=== PATIENT | female | born 1945 | race Caucasian/White ===

== ENCOUNTER 2016-09-01 15:01 | Inpatient (IN) | payer OTHER ==
[~2016-09-01] VITALS: Ht 154.9 cm; Wt 80.0 kg
[2016-09-01] MEDS ORDERED: ONDANSETRON 4 MG INJ IV STA ×2 (17:22→19:27)
[2016-09-01] MEDS ORDERED: SOD CHLORIDE 0.9% 1,000 ML IV STA (17:22)
[2016-09-01] MEDS ORDERED: morphine 4 MG/ML VIAL IV STA ×2 (17:22→19:27)
[2016-09-01] MEDS ORDERED: ASPIRIN 81 MG TAB PO ONE (17:30)
--- NOTE | 2016-09-01 17:45 | RADRPT ---
PROCEDURE: XR Chest. CLINICAL INDICATION: Abdominal pain. TECHNIQUE: Single frontal view. COMPARISON: None. FINDINGS: The lungs are clear. The heart size is normal. There is no pleural effusion. There is no pneumothorax. IMPRESSION: 1. Normal chest radiograph. RPTAT: QQ .Gregory Giordano MD, Date Time Electronically viewed and signed by .Gregory Giordano MD, on 09/01/2016 17:45 .R/
[2016-09-01 18:17] LABS: HEMATOCRIT 43.6 % (37.0-47.0); HEMOGLOBIN 14.6 g/dl (12.0-16.0); MEAN CORPUSCULAR HEMOGLOBIN 29.2 pg (29.0-33.0); MEAN CORPUSCULAR HGB CONC 33.6 g/dl (32.0-37.0); PLATELET COUNT 259 10^3/UL (140-440); RED BLOOD COUNT 5.01 10^6/ul (4.20-5.40); RED CELL DISTRIBUTION WIDTH 14.4 % (11.5-14.5); UNCORRECTED WBC 28.2 10^3/ul (4.8-10.8); WHITE BLOOD COUNT 28.2 10^3/ul (4.8-10.8)
[2016-09-01 18:25] LABS: ALBUMIN 4.5 g/dl (3.3-4.9)
[2016-09-01 18:26] LABS: CHLORIDE 98 mmol/L (97-110); SODIUM 143 mmol/L (135-144)
[2016-09-01 18:27] LABS: POTASSIUM 4.3 mmol/L (3.5-5.1)
[2016-09-01 18:28] LABS: CONDITION 1; LH ANALYZER COMMENTS 1; SUSPECT 1
[2016-09-01 18:28] LABS: ANION GAP 21 (8-16); ASPARTATE AMINO TRANSFERASE 488 IU/L (15-46); BILIRUBIN,INDIRECT 0.7 mg/dl (0-1.1); BILIRUBIN,TOTAL 1.2 mg/dl (0.2-1.3); CARBON DIOXIDE 28 mmol/L (21-31); CREATININE 0.87 mg/dl (0.44-1.00)
[2016-09-01 18:29] LABS: ALANINE AMINOTRANSFERASE 179 IU/L (13-69); ALBUMIN/GLOBULIN RATIO 1.36; ALKALINE PHOSPHATASE 248 IU/L (42-121); BLOOD UREA NITROGEN 17 mg/dl (7-20); GLUCOSE 281 mg/dl (70-220); TOTAL PROTEIN 7.8 g/dl (6.1-8.1)
[2016-09-01 18:32] LABS: PT RATIO 1.1
[2016-09-01 18:51] LABS: LYMPHOCYTES # 1.1 10^3/ul (0.8-2.9); MONOCYTE # 2.3 10^3/ul (0.3-0.9)
[2016-09-01] MEDS ORDERED: PIPER-TAZO 3.375 GM IV (PMX) 100 ML IVPB STA (18:55)
[2016-09-01] MEDS ORDERED: SOD CHLORIDE 0.9% 1,000 ML IV ONE ×3 (19:00→21:30)
[2016-09-01] MEDS ORDERED: SOD CHLORIDE 0.9% 500 ML IV ONE (19:00)
[2016-09-01 19:01] LABS: INR 1.04; PARTIAL THROMBOPLASTIN TIME 25.2 Sec (25.0-35.0); PROTIME 13.6 Sec (12.2-14.2)
[2016-09-01 19:23] LABS: TROPONIN-I < 0.010 ng/ml (0.00-0.12)
[2016-09-01] MEDS ORDERED: metroNIDAZOLE 500 MG/NS (PMX) 100 ML IVPB ONE (19:30)
[2016-09-01 19:32] LABS: ADD UMIC YES; URINE BILIRUBIN (Dip) 2+ (NEGATIVE); URINE BLOOD (Dip) NEGATIVE (NEGATIVE); URINE COLOR AMBER (YELLOW); URINE KETONES (Dip) TRACE (NEGATIVE); URINE LEUKOCYTE ESTERASE (Dip) NEGATIVE (NEGATIVE); URINE NITRITE (Dip) NEGATIVE (NEGATIVE); URINE TOTAL PROTEIN (Dip) 1+ (NEGATIVE); URINE UROBILINOGEN (Dip) 2.0 E.U./dL (0.1-1.0)
[2016-09-01 19:54] LABS: ICTOTEST NEGATIVE (NEGATIVE)
[2016-09-01 20:00] LABS: BACTERIA,URINE MODERATE; SQUAMOUS EPITHELIAL CELL,UR MANY; URINE RBCS 0-2 /HPF (0)
--- NOTE | 2016-09-01 20:00 | RADRPT ---
PROCEDURE: CT Abdomen and Pelvis without contrast. CLINICAL INDICATION: Abdominal and pelvic pain. TECHNIQUE: CT scan of the abdomen and pelvis without contrast was performed. Coronal and sagittal reformatted images were obtained from the axial source images. Images were reviewed on a high-resolu nVoqon PACS workstation. Total exam DLP is 155.73 mGy-cm. CTDIvol is 9.85 mGy. COMPARISON: None. FINDINGS: The lung bases are normal. There is no pleural effusion. The heart size is normal and there is no p ericardial effusion. The liver is normal in size and attenuation. There is no focal hepatic lesion. Gallstones are present in the gallbladder. There is a small gas bubble in the gallbladder or gallbl adder wall anteriorly. The common bile duct is mildly dilated and there is gas in the common bile du ct. Possible stones are present distally in the common bile duct. The spleen is normal in size. There is no focal splenic lesion. Both adrenals are normal with no enlargement or mass. The pancreas is abnormally enlarged and there is diffuse surrounding mesenteric edema consistent wit h pancreatitis. There is no fluid collection or mass to suggest abscess or pseudocyst. There is no renal mass or hydronephrosis. There is no renal calculus or ureteral calculus. The abdominal aorta is not dilated. There is no retroperitoneal lymphadenopathy or mass. There is no pelvic lymphadenopathy or mass. The bladder and distal ureters are normal. The appendix is well seen and appears normal. The bowel and mesentery are normal. There is no free fluid or free gas. There are mild degenerative changes of the spine. There is no fracture or lytic lesion. IMPRESSION: 1. Gallstones in the gallbladder. 2. Small amount of gas anteriorly in the gallbladder or gallbladder wall. Small amount of gas in t he mildly dilated common bile duct. Possible stones are present distally in the common bile duct. Correlation with MRCP advised. 3. Acute pancreatitis. No abscess or pseudocyst. 4. Normal appendix. 5. Mild degenerative changes of the spine. RPTAT: QQ .Gregory Giordano MD, MD Date Time Electronically viewed and signed by .Gregory Giordano MD, on 09/01/2016 20:00 .R/
--- NOTE | 2016-09-01 20:20 | RADRPT ---
PROCEDURE: US Abdomen (right upper quadrant). CLINICAL INDICATION: Right upper quadrant abdomen pain. TECHNIQUE: Multiple real-time longitudinal and transverse images of the right upper quadrant of th e abdomen were acquired utilizing a curved array transducer. Images were reviewed on a high-resoluti on PACS workstation. COMPARISON: None FINDINGS: The liver is normal in size and echogenicity. There is no focal hepatic lesion. Gallstones are present in the gallbladder. There is gallbladder wall thickening measuring 5.3 mm an d there is a small amount of fluid around the gallbladder. The bile ducts are dilated with the common bile duct measuring 10.2 mm in diameter. The visualized portions of the pancreas are unremarkable with obscuration of the tail of the pancrea s. No free fluid is present. The right kidney measures 9.1 cm. There is normal echogenicity of the right kidney. There is no p erinephric fluid collection. No hydronephrosis, mass, or calculus is seen. IMPRESSION: 1. Gallstones in the gallbladder and gallbladder wall thickening with small amount of adjacent flui d. This is suspicious for acute cholecystitis. 2. Dilated bile ducts with the common bile duct measuring 10.2 mm. Correlation with MRCP advised. 3. Otherwise unremarkable study. RPTAT: QQ .Gregory Giordano MD, MD Date Time Electronically viewed and signed by .Gregory Giordano MD, on 09/01/2016 20:20 .R/
[2016-09-01] MEDS ORDERED: ONDANSETRON 4 MG INJ IV PRN (21:00)
[2016-09-01] MEDS ORDERED: ACETAMINOPHEN 325 MG TAB PO PRN (21:00)
[2016-09-01] MEDS ORDERED: morphine 2 MG INJ IV ONE (23:00)
--- NOTE | 2016-09-01 23:03 | ERA ---
ER Documentation Chief Complaint Date/Time DATE: 09/01/16 TIME: 22:39 Chief Complaint VOMITING X 1 DAY WITH WEAKNESS. HPI 71-year-old diabetic female with vomiting that began earlier today. Stated that she felt fine last night and even this morning but after she ate breakfast which was aches, and then took a Tylenol. She started having a sharp right upper quadrant pain and vomited. She is felt weak all over since. She has no focal weakness. Denies specific chest pain. Denies shortness of breath. Has felt chills. Denies fevers. ROS All systems reviewed and are negative except as per history of present illness. Allergies Allergies: Coded Allergies: aspirin (Verified Allergy, Unknown, 09/01/16) PMhx/Soc Medical and Surgical Hx: pt denies Medical Hx, pt denies Surgical Hx Hx Alcohol Use: No Hx Substance Use: No Hx Tobacco Use: No Smoking Status: Never smoker Physical Exam Vitals Vital Signs Date Time Temp Pulse Resp B/P Pulse Ox O2 Delivery O2 Flow Rate FiO2 09/01/16 22:03 64 18 115/54 98 Nasal Cannula 2.0 09/01/16 21:04 Nasal Cannula 2 09/01/16 20:49 98.4 74 18 101/47 94 Room Air 09/01/16 18:34 62 25 113/57 95 Room Air 09/01/16 15:14 97.8 88 19 108/54 99 Physical Exam Const: [] Mild distress, ill-appearing Head: Atraumatic Eyes: Normal Conjunctiva ENT: Normal External Ears, Nose and Mouth. Neck: Full range of motion..~ No meningismus. Resp: Clear to auscultation bilaterally Cardio: Regular mild tachycardia, no murmurs Abd: Soft, mild to moderate right upper quadrant tenderness without guarding or rebound, non distended. Normal bowel sounds Skin: No petechiae or rashes Back: No midline or flank tenderness Ext: No cyanosis, or edema Neur: Awake and alert and oriented 3, no focal deficits Psych: Normal Mood and Affect Result Diagram: 09/01/16 1715 09/01/16 1722 Results 24 hrs Laboratory Tests Test 09/01/16 17:15 09/01/16 17:22 09/01/16 18:18 09/01/16 19:00 Activated Partial Thromboplast Time 25.2Sec Band Neutrophils % 22.0% Hematocrit 43.6% Hemoglobin 14.6g/dl INR International Normalized Ratio 1.04 Lymphocytes # 1.110^3/ul Lymphocytes % 4.0% Mean Corpuscular Hemoglobin 29.2pg Mean Corpuscular Hemoglobin Concent 33.6g/dl Mean Corpuscular Volume 87.0fl Mean Platelet Volume 10.0fl Metamyelocytes # 0.6 Metamyelocytes % 2.0% Monocytes # 2.310^3/ul Monocytes % 8.0% Neutrophils # 18.010^3/ul Neutrophils % 64.0% Platelet Count 29612^3/UL Prothrombin Time 13.6Sec Prothrombin Time Ratio 1.1 Red Blood Count 5.0110^6/ul Red Cell Distribution Width 14.4% White Blood Count 28.210^3/ul Alanine Aminotransferase (ALT/SGPT) 179IU/L Albumin 4.5g/dl Albumin/Globulin Ratio 1.36 Alkaline Phosphatase 248IU/L Anion Gap 21 Aspartate Amino Transf (AST/SGOT) 488IU/L Blood Urea Nitrogen 17mg/dl Calcium Level 10.0mg/dl Carbon Dioxide Level 28mmol/L Chloride Level 98mmol/L Creatinine 0.87mg/dl Direct Bilirubin 0.50mg/dl Globulin 3.30g/dl Glucose Level 281mg/dl Indirect Bilirubin 0.7mg/dl Lipase 91761Z/L Potassium Level 4.3mmol/L Sodium Level 143mmol/L Total Bilirubin 1.2mg/dl Total Protein 7.8g/dl Troponin I < 0.010ng/ml Lactic Acid Level 5.7mmol/L Urine Bacteria MODERATE Urine Bilirubin 2+ Urine Clarity SLIGHTLY CLOUDY Urine Color SHASHI Urine Glucose 0.1%% Urine Hemoglobin NEGATIVE Urine Ictotest NEGATIVE Urine Ketones TRACE Urine Leukocyte Esterase NEGATIVE Urine Microscopic RBC 0-2/HPF Urine Microscopic WBC 5-10/HPF Urine Nitrite NEGATIVE Urine Specific [place] 1.025 Urine Squamous Epithelial Cells MANY Urine Total Protein 1+ Urine Urobilinogen 2.0 E.U./dL Urine pH 5.5 Test 09/01/16 21:15 Lactic Acid Level 4.6mmol/L Current Medications Medications (Trade) Dose Ordered Sig/Debbie Route PRN Reason Start Time Stop Time Status Last Admin Dose Admin Sodium Chloride (NS) 1,000 ml @ 1,000 mls/hr Q1H STAT IV 09/01/16 17:22 12/25/16 18:21 DC 09/01/16 17:42 Morphine Sulfate (morphine) 4 mg ONCE STAT IV 09/01/16 17:22 09/01/16 17:25 DC 09/01/16 17:42 Ondansetron HCl (Zofran Inj) 4 mg ONCE STAT IV 09/01/16 17:22 09/01/16 17:25 DC 09/01/16 17:43 Aspirin 324 mg 324 mg ONCE ONCE PO 09/01/16 17:30 09/01/16 17:31 DC 09/01/16 17:43 Piperacillin Sod/ Tazobactam Sod 100 ml @ 200 mls/hr ONCE STAT IVPB 09/01/16 18:55 09/01/16 19:24 DC 09/01/16 19:22 Sodium Chloride 1,000 ml @ 1,000 mls/hr Q1H ONCE IV 09/01/16 19:00 09/01/16 19:59 DC 09/01/16 19:18 Sodium Chloride 500 ml @ 500 mls/hr Q1H ONCE IV 09/01/16 19:00 09/01/16 19:59 DC 09/01/16 19:19 Metronidazole (Flagyl 500 Mg (Pmx)) 100 ml @ 100 mls/hr ONCE ONCE IVPB 09/01/16 19:30 09/01/16 20:59 DC Morphine Sulfate (morphine) 4 mg ONCE STAT IV 09/01/16 19:27 09/01/16 20:21 DC 09/01/16 20:24 Ondansetron HCl (Zofran Inj) 4 mg ONCE STAT IV 09/01/16 19:27 09/01/16 20:21 DC 09/01/16 20:24 Ondansetron HCl (Zofran Inj) 4 mg BRIDGE ORDER PRN IV NAUSEA AND/OR VOMITING 09/01/16 21:00 09/02/16 20:59 Acetaminophen 650 mg 650 mg ER BRIDGE PRN PO MILD PAIN/FEVER 09/01/16 21:00 09/02/16 20:59 Sodium Chloride 1,000 ml @ 1,000 mls/hr Q1H ONCE IV 09/01/16 21:00 09/01/16 21:59 DC 09/01/16 21:09 Sodium Chloride (NS) 1,000 ml @ 1,000 mls/hr Q1H ONCE IV 09/01/16 21:30 09/01/16 22:29 DC Procedures/MDM Acute cholecystitis with pancreatitis. No common bile duct stone visualized but is possible. Patient also has sepsis secondary to these problems. Diagnosis of sepsis was made at 1852 after laboratories returned and reviewed. Patient had a significantly elevated lactic acid. She is given more than 30 mL/kg normal saline. She is given Zosyn. Surprisingly she did not have significant abdominal pain or tenderness. Given for mild grams of morphine for pain which took away all of her pain. His also given Zofran which to resolved her nausea. I ordered an MRCP. and was paged for GI never returned the call. Dr. Mendoza was on-call for surgery was also paged. He came and saw the patient emergency room. Lactic acid is reducing with IV fluids. Hyperglycemia is also being treated with IV fluid. EKG is suspicious for ischemia as the patient does have inverted T waves in the anterior and lateral leads of her troponin is negative and the blood greater than 8 hours after pain began. Patient is being admitted likely receive an MRCP prior to admission. EKG interpretation: Normal sinus rhythm rate of 64, left axis deviation, T-wave inversions in anterolateral leads suspicious for ischemia. groundwater monitoring technician interpretation: Normal sinus rhythm alternating with mild sinus tachycardia, no other arrhythmias Chest x-ray interpretation: No acute process, I see no widened No pneumothorax no hemothorax no pulmonary edema no fractures CT abdomen and pelvis interpretation: Gallstones with small amount of gas and bladder wall, dilated common bile duct stones present distally. Ultrasound gallbladder interpretation: Gallstones with wall thickening, pericystic colic fluid, dilated come bile duct of 10.2 cm. Critical Care: Time: 44 minutes Treatments/Evaluations: Emergent fluid management, while maintaining close respiratory support. Barely broad spectrum antibiotic therapy. Simultaneous assessment for possible sources in order to direct therapy. Consideration for invasive and chemical support to prevent respiratory or cardiac collapse, discussion with family, surgeon, admitting doctor, multiple visits the patient's bedside assess status, chart review. Perfusion Reassessment for Septic Shock: Temp 98.9, Pulse 97, RR 18, BP 111/68 Heart Exam: Normal sinus rhythm without murmur Lung Exam: No Crackles Capillary Refill: Less than 1 second Peripheral Pulses: Radially present Skin: No paleness or mottling Departure Diagnosis: Primary Impression: Acute cholecystitis Additional Impressions: Choledocholithiasis Acute pancreatitis Sepsis Lactic acidosis Hyperglycemia due to type 2 diabetes mellitus Condition: Serious GLORIA HILL DO Sep 01, 2016 22:50
[2016-09-02] VITALS (8 sets, daily range): BP systolic 114–118; BP diastolic 57–59; PULSE 63–70; RESP 16–18; TEMP 98.5; Ht 154.9 cm; Wt 80.0 kg
--- NOTE | 2016-09-02 00:51 | RADRPT ---
PROCEDURE: MRCP. CLINICAL INDICATION: Abdominal pain. TECHNIQUE: An MRCP was performed without intravenous contrast. Multiplanar multisequence imaging w as performed, including heavily T2-weighted imaging of the biliary tree. 3-D coronal rotating MIP im ages of the biliary tree were also generated. The examination was performed on a 3.0 [facility]. COMPARISON: Abdominal ultrasound and CT of the abdomen and pelvis dated 09/01/2016. FINDINGS: The examination is limited by patient motion. There are stones in the gallbladder and gallbladder wa ll thickening. The gallbladder gas seen in the prior CT is not evident in this examination. There i s also no significant pericholecystic inflammation. The common bile duct is dilated up to 11 mm in d iameter. There is the suggestion of a 6 mm stone within the distal common bile duct. There is a sm all to moderate amount of free fluid in the abdomen, seen predominately in the anterior pararenal sp wendy. This is suggestive of pancreatitis. No pancreatic ductal dilatation is identified. The liver , spleen, adrenal glands, and kidneys are unremarkable. IMPRESSION: 1. Motion limited examination. 2. Cholelithiasis and gallbladder wall thickening. These findings raise the possibility of cholecys titis, although there is no significant pericholecystic inflammation. The gallbladder gas seen in t he prior CT is not evident in this examination. 3. Dilated common bile duct (11 mm) and a probable 6 mm stone in the distal common bile duct. This could be further evaluated with ERCP if clinically warranted. 4. Small to moderate amount of free fluid in the abdomen, seen predominately in the anterior parare nal space. This is suggestive of pancreatitis. Correlation with serum amylase and lipase levels is r ecommended. There is no pancreatic ductal dilatation. RPTAT: HTAR .Loki Turner MD, Date Time Electronically viewed and signed by .Loki Turner MD, on 09/02/2016 00:50 .R/
--- NOTE | 2016-09-02 02:32 | CONS ---
DATE OF ADMISSION: 09/01/2016 DATE OF CONSULTATION: 09/01/2016 HISTORY OF PRESENT ILLNESS: Ms. Yin is a 71-year-old female who had acute onset of right upper quadrant abdominal pain and came to the emergency room. She states she had similar symptoms [address] [facility] and was told she has pancreatitis. Due to her workup, I was called for concern f or cholecystitis. PAST MEDICAL HISTORY: Significant for acy-mkwsjqu-vkjzaihva diabetes and hypertension. MEDICATIONS: She takes metformin and Lotensin. PAST SURGICAL HISTORY: Noncontributory. ALLERGIES: NO KNOWN DRUG ALLERGIES. SOCIAL HISTORY: Denies drinking, drug use or smoking. PHYSICAL EXAMINATION: GENERAL: She is an obese female resting comfortably. VITAL SIGNS: T-max is 98.4, BP 115/54, pulse is 64. CHEST: Clear to auscultation bilaterally. HEART: Regular rhythm. ABDOMEN: Soft, nondistended but significant right upper quadrant tenderness. LABORATORY DATA: Reveal a white count of 28, hematocrit of 44, and platelets of 259. Sodium 143, p otassium 4.3, chloride 98, CO2 28, BUN and creatinine 17 and 0.9 and glucose of 281. AST 48, ALT 17 9, alkaline phosphatase 248 and a lipase of 41,000. Her total bilirubin is 1.2. Ultrasound of her gallbladder reveals gallstones in the gallbladder and gallbladder wall thickening with a small amoun t of adjacent fluid, dilated bile ducts with common duct measuring 10.[address] of the abdomen and pelvis reveals gallstones in the gallbladder, a small amount of gas anterior in the gallbladder, ga llbladder wall, small amount of gas and a mildly dilated common duct, possible stones present distally in the common duct. Correlation with MRCP. Acute pancreatitis. ASSESSMENT AND PLAN: Ms. Yin is a 71-year-old female with gallstone pancreatitis, possible emph ysematous cholecystitis, and possible choledocholithiasis. An MRCP will be ordered stat to further elucidate her condition. If she does have common bile duct stones, then she will require an ERCP pr ior to surgery. If her duct is clear and she still some air in her gallbladder wall, she will need an urgent cholecystectomy. I discussed laparoscopic, possible open cholecystectomy, possible cholan giogram with the patient and her friends. All benefits, risks, alternatives were discussed in [facility], questions answered. The patient elects to proceed. We will await the results of the MRCP and th en determine the next course of action. In the meantime, n.p.o., IV fluids, and IV antibiotics. Dictated By: HOWIE ESCOBEDO/NTS Conf#: [id number] DID#: [id number]
[2016-09-02] MEDS ORDERED: morphine 2 MG INJ IV PRN (06:30)
[2016-09-02] MEDS ORDERED: ONDANSETRON 4 MG INJ IV PRN (06:30)
[2016-09-02] MEDS: IMIPENEM-CILAST 500MG IV (PMX) 100 ML IVPB SCH ×3 (06:30→19:26)
[2016-09-02] MEDS ORDERED: MAGNESIUM HYDROXIDE 30ML CUP PO PRN (06:30)
[2016-09-02] MEDS ORDERED: LORAZEPAM 2 MG INJ IV PRN (06:30)
[2016-09-02] MEDS ORDERED: METOCLOPRAMIDE 10 MG INJ IV PRN (06:30)
[2016-09-02] MEDS ORDERED: NACL 0.9% 3 ML SYG IV SCH (06:30)
[2016-09-02] MEDS: DEXTROSE 5%-0.45% NACL 1,000 ML IV SCH ×2 (08:33→14:28)
--- NOTE | 2016-09-02 08:41 | CONS ---
Date/Time of Note Date/Time of Note DATE: 09/02/16 TIME: 08:41 Assessment/Plan Assessment/Plan Additional Assessment/Plan Cholecystitis with cholelithiasis and choledocholithiasis * Monitor lipase, amylase, and bilirubin * N.p.o. * IVF hydration w/ pain management * ERCP with Dr. Whitley with improvement of her clinical presentation * Cholecystectomy with Further recommendations depend on clinical course Patient seen in collaboration with Dr. Whitley Consultation Date/Type/Reason Admit Date/Time Sep 01, 2016 at 20:52 Hx of Present Illness 71-year-old Afghan-speaking female with past medical history of diabetes, hypertension and low back pain presented to the ED last night with complaints of intense right-sided abdominal pain, chills, nausea and nonbloody bilious vomiting. She states that abdominal pain and vomiting began earlier yesterday and began to worsen throughout the day. She denies fever, diarrhea, chest pain , shortness of breath, previous episode, sick contacts, alcohol use, travel outside the [place], and lightheadedness. MRCP indicates: The common bile duct is dilated up to 11 mm in diameter. There is the suggestion of a 6 mm stone within the distal common bile duct. Patient will require ERCP prior to cholecystectomy. Patient and family advised of R/B/A of procedure and they are agreeable to proceed. Past Surgical History Past Surgical Hx: no surgical history Family History Significant Family History: no pertinent family hx Social History Alcohol Use: none Smoking Status: Never smoker Exam/Review of Systems Vital Signs Vitals Vital Signs Date Time Temp Pulse Resp B/P Pulse Ox O2 Delivery O2 Flow Rate FiO2 09/02/16 08:09 66 09/02/16 05:00 111/60 100 Nasal Cannula 2.0 09/02/16 04:00 98.5 14 Exam Constitutional: alert, oriented, well developed Psych: nl mood/affect Head: normocephalic Eyes: EOMI ENMT: nl external ears & nose, nl lips & teeth, nl nasal mucosa & septum Respiratory: normal air movement Cardiovascular: regular rate and rhythm Gastrointestinal: soft, tender (Right side) Neurological: X RAY TECHNOLOGIST II-XII intact Results Result Diagram: 09/01/16 1715 09/01/16 1722 Results 24 hrs Laboratory Tests Test 09/01/16 17:15 09/01/16 17:22 09/01/16 18:18 09/01/16 19:00 Activated Partial Thromboplast Time 25.2 Band Neutrophils % 22.0 H Hematocrit 43.6 Hemoglobin 14.6 INR International Normalized Ratio 1.04 Lymphocytes # 1.1 Lymphocytes % 4.0 L Mean Corpuscular Hemoglobin 29.2 Mean Corpuscular Hemoglobin Concent 33.6 Mean Corpuscular Volume 87.0 Mean Platelet Volume 10.0 Metamyelocytes # 0.6 Metamyelocytes % 2.0 H Monocytes # 2.3 H Monocytes % 8.0 Neutrophils # 18.0 H Neutrophils % 64.0 Platelet Count 259 Prothrombin Time 13.6 Prothrombin Time Ratio 1.1 Red Blood Count 5.01 Red Cell Distribution Width 14.4 White Blood Count 28.2 H Alanine Aminotransferase (ALT/SGPT) 179 H Albumin 4.5 Albumin/Globulin Ratio 1.36 Alkaline Phosphatase 248 H Anion Gap 21 H Aspartate Amino Transf (AST/SGOT) 488 H Blood Urea Nitrogen 17 Calcium Level 10.0 Carbon Dioxide Level 28 Chloride Level 98 Creatinine 0.87 Direct Bilirubin 0.50 H Globulin 3.30 H Glucose Level 281 H Indirect Bilirubin 0.7 Lipase 04755 H Potassium Level 4.3 Sodium Level 143 Total Bilirubin 1.2 Total Protein 7.8 Troponin I < 0.010 Lactic Acid Level 5.7 *H Urine Bacteria MODERATE Urine Bilirubin 2+ H Urine Clarity SLIGHTLY CLOUDY Urine Color SHASHI Urine Glucose 0.1% H Urine Hemoglobin NEGATIVE Urine Ictotest NEGATIVE Urine Ketones TRACE H Urine Leukocyte Esterase NEGATIVE Urine Microscopic RBC 0-2 Urine Microscopic WBC 5-10 Urine Nitrite NEGATIVE Urine Specific [place] 1.025 Urine Squamous Epithelial Cells MANY Urine Total Protein 1+ H Urine Urobilinogen 2.0 E.U./dL H Urine pH 5.5 Test 09/01/16 21:15 09/01/16 23:10 Lactic Acid Level 4.6 *H 3.5 H Medications Medications Current Medications Dextrose/Sodium Chloride (D5-1/2ns) 1,000 ml @ 125 mls/hr Q8H IV ; Start 09/02 at 06:28 Lorazepam (Ativan) 0.5 mg Q6H PRN IV ANXIETY; Start 09/02/16 at 06:30 Ondansetron HCl (Zofran Inj) 4 mg Q6H PRN IV NAUSEA AND/OR VOMITING; Start at 06:30 Metoclopramide HCl (Reglan) 10 mg Q6H PRN IV NAUSEA AND/OR VOMITING; Start at 06:30 Magnesium Hydroxide 30 ml 30 ml DAILY PRN PO CONSTIPATION; Start 09/02/16 at 06:30 Imipenem/ Cilastatin Sodium (Primaxin 500 Mg/ 100 ml (Pmx)) 100 ml @ 100 mls/ hr Q6H IVPB ; Start 09/02/16 at 06:30 Morphine Sulfate (morphine) 4 mg Q4H PRN IV pain; Start 09/02/16 at 07:00 Famotidine (Pepcid Iv) 20 mg DAILY IV ; Start 09/02/16 at 09:00 CLYDE WAGNER Sep 02, 2016 08:41
[2016-09-02] MEDS ORDERED: FAMOTIDINE 20 MG INJ IV SCH (09:00)
--- NOTE | 2016-09-02 09:06 | HP ---
DATE OF ADMISSION: 09/01/2016 TIME SEEN: 2330. CHIEF COMPLAINT: Abdominal pain and vomiting. HISTORY OF PRESENT ILLNESS: The patient is a 71-year-old female with a history of pancreatitis 10 y ears ago, diagnosed at her home country in [facility] who presented to the emergency department with abdominal pain and vomiting. The pain is mainly localized in the right upper quadrant area and asso ciated with nonbilious, nonbloody vomiting. When she presented to the ER, her vitals were stable. Laboratory values, however, shows a WBC of 28,000. AST 488, ALT 179, alkaline phosphatase 248, lipa se 41,000, lactic acid 5.7, and glucose of 281. She had a right upper quadrant ultrasound which ja wed findings suspicious for acute cholecystitis as well as dilated common bile duct measuring 10.[address] abdomen and pelvis was done and then MRCP was done which showed cholelithiasis and gallbladde r wall thickening as well as a dilated common bile duct measuring 11 mm and probable 6 mm stone in t he distal common bile duct. Chest x-ray shows clear lungs. The patient has already been seen by Dr Joshua Mendoza, the surgeon, with plan for laparoscopic cholecystectomy. The patient received pain medica tion, IV fluids, and antibody was given in the ER. REVIEW OF SYSTEMS: Negative except as mentioned in the HPI. PAST MEDICAL HISTORY: As per HPI. SOCIAL HISTORY: Denies tobacco, alcohol, or illicit drug use. ALLERGIES: ASPIRIN. HOME MEDICATIONS: None listed. PHYSICAL EXAMINATION: VITAL SIGNS: Blood pressure 120/57, heart rate 68, respiratory rate 14, temperature 98.4, oxygen sa turation 98% on 2 liters. GENERAL: In distress due to pain and appears sick. HEENT: No obvious head deformity. Pupils react to light. Extraocular muscles intact. CARDIOVASCULAR: Regular rate and rhythm. No extra sounds. LUNGS: Clear. ABDOMEN: Soft. There is tenderness mainly in the right upper quadrant area. No guarding. No rigi dity. There is positive bowel sounds. EXTREMITIES: No edema. LABORATORY: Pertinent positives as above stated in HPI. IMAGING: Gallbladder ultrasound, CT abdomen and pelvis, MRCP, and chest x-ray have been done and re sults have been discussed in the HPI. IMPRESSION: 1. Acute cholecystitis with choledocholithiasis. 2. Gallstone pancreatitis. 3. Sepsis secondary to above. 4. Lactic acidosis. 5. Abnormal liver enzymes, secondary to #1. 6. Hyperglycemia, likely with a history of diabetes. PLAN: Will keep n.p.o. She will receive IV fluids. We will provide pain medication and antiemetic s as needed. We will start her on imipenem. Will repeat labs in the morning and will add A1c. We will trend her lactic acid. I believe a GI consult has been placed by the ER physician, but if not, will place one since she will need ERCP. Again, she will be kept n.p.o. for possible laparoscopic cholecystectomy by Dr. Mendoza. Further workup and management per clinical course. Dictated By: RODRI GOSS/DEMARCUS Conf#: [id number] DID#: [id number]
[2016-09-02] MEDS: FAMOTIDINE 20 MG INJ IV SCH (09:26)
[2016-09-02 09:37] LABS: HEMATOCRIT 38.1 % (37.0-47.0); HEMOGLOBIN 12.8 g/dl (12.0-16.0); MEAN CORPUSCULAR HGB CONC 33.6 g/dl (32.0-37.0); MEAN CORPUSCULAR VOLUME 86.4 fl (82.0-101.0); MEAN PLATELET VOLUME 9.4 fl (7.4-10.4); PLATELET COUNT 212 10^3/UL (140-440); RED BLOOD COUNT 4.41 10^6/ul (4.20-5.40); RED CELL DISTRIBUTION WIDTH 14.5 % (11.5-14.5); UNCORRECTED WBC 25.1 10^3/ul (4.8-10.8); WHITE BLOOD COUNT 25.1 10^3/ul (4.8-10.8)
[2016-09-02 09:41] LABS: CONDITION 1; LH ANALYZER COMMENTS 1; SUSPECT 1
[2016-09-02] MEDS: morphine 4 MG/ML VIAL IV PRN ×2 (09:41→14:16)
[2016-09-02 09:43] LABS: ALBUMIN 3.5 g/dl (3.3-4.9); POTASSIUM 3.9 mmol/L (3.5-5.1)
[2016-09-02 09:45] LABS: CREATININE 0.65 mg/dl (0.44-1.00)
[2016-09-02 09:46] LABS: ALBUMIN/GLOBULIN RATIO 1.16; BILIRUBIN,INDIRECT 0.7 mg/dl (0-1.1); BILIRUBIN,TOTAL 0.7 mg/dl (0.2-1.3); CALCIUM 8.6 mg/dl (8.4-10.2); TOTAL PROTEIN 6.5 g/dl (6.1-8.1)
[2016-09-02 09:47] LABS: MAGNESIUM 1.5 mg/dl (1.7-2.5)
--- NOTE | 2016-09-02 10:43 | PN ---
DATE: 09/02/2016 SUBJECTIVE: Ms. Yin is hospital day 1 for gallstone pancreatitis. She states she is feeling be tter and complaining of less pain. OBJECTIVE: VITAL SIGNS: She is afebrile. Vital signs stable. ABDOMEN: Soft with less epigastric and right upper quadrant tenderness. LABORATORY DATA: Today reveal white count of 25, down from 28, hematocrit 38 and platelets of 212. Her chemistry is pending today. She did have an MRCP done in the middle of the night which reveale d cholelithiasis and gallbladder wall thickening, possible cholecystitis, although there is no signi ficant pericholecystic inflammation. The gallbladder gas seen on the prior CT is not evident on exa m. There is a dilated common duct with probable 6 mm stone in the distal common bile duct, small to moderate free fluid in the abdomen in the anterior perirenal space suggestive of pancreatitis. ASSESSMENT AND PLAN: 1. Ms. Yin is a 71-year-old female with choledocholithiasis and gallstone pancreatitis. She is improving and I would await for her pancreatitis to resolve laparoscopic cholecystectomy. 2. Recommend ERCP when pancreatitis is stable. 3. Likely will benefit from an outpatient laparoscopic cholecystectomy. Dictated By: HOWIE ESCOBEDO/DEMARCUS Conf#: [id number] DID#: [id number]
[2016-09-02 10:54] LABS: MONOCYTE # 0.8 10^3/ul (0.3-0.9); NEUTROPHIL # 22.1 10^3/ul (1.6-7.5)
[2016-09-02] MEDS ORDERED: VANCOMYCIN IV PER PHARMACY XX SCH (16:30)
--- NOTE | 2016-09-02 16:45 | PN ---
Date/Time of Note Date/Time of Note DATE: 09/02/16 TIME: 16:43 Assessment/Plan VTE Prophylaxis VTE Prophylaxis Intervention: SCD's Assessment/Plan Chief Complaint/Hosp Course IMPRESSION: 1. Acute cholecystitis with choledocholithiasis. General surgery and pig iron loader has been consulted, n.p.o., IV fluids, Continue broad-spectrum IV antibiotics 2. Gallstone pancreatitis. General surgery and GI has been consulted Continue IV fluid, broad-spectrum IV antibiotics, follow up GI recommendation for possible ERCP 3. Sepsis secondary to above. As above 4. Lactic acidosis. As above 5. Abnormal liver enzymes, secondary to #1. 6. Diabetes mellitus type 2, start patient on insulin sliding scale, low dose of Lantus, continue monitor We will continue monitor patient closely for recommendation management treatment as clinical course Problems: Subjective 24 Hr Interval Summary Free Text/Dictation Patient continues to complain of having abdominal discomfort No nausea vomiting Denies of any chest pain Exam/Review of Systems Vital Signs Vitals Vital Signs Date Time Temp Pulse Resp B/P Pulse Ox O2 Delivery O2 Flow Rate FiO2 09/02/16 16:07 70 09/02/16 15:40 98.0 18 114/57 92 09/02/16 05:00 Nasal Cannula 2.0 Exam General: The patient is well-developed, Not in acute distress. HEENT: Atraumatic, normocephalic. The pupils are equal and round . Neck: Supple with full range of motion. Chest: Normal expansion of the thorax during inspiration Lungs: Clear to auscultation bilaterally Heart: Normal S1-S2, Regular rhythm and rate. Abdomen: Soft , midepigastric and right upper quadrant tenderness , nondistended , bowel sounds are present. Extremities: Normal to inspection, no edema no cyanosis Neurologic: Normal mental status,The patient is awake, alert and oriented . Results Result Diagram: 09/02/16 0914 09/02/16 0914 Results 24 hrs Laboratory Tests Test 09/01/16 17:15 09/01/16 17:22 09/01/16 18:18 09/01/16 19:00 Activated Partial Thromboplast Time 25.2 Band Neutrophils % 22.0 H Hematocrit 43.6 Hemoglobin 14.6 INR International Normalized Ratio 1.04 Lymphocytes # 1.1 Lymphocytes % 4.0 L Mean Corpuscular Hemoglobin 29.2 Mean Corpuscular Hemoglobin Concent 33.6 Mean Corpuscular Volume 87.0 Mean Platelet Volume 10.0 Metamyelocytes # 0.6 Metamyelocytes % 2.0 H Monocytes # 2.3 H Monocytes % 8.0 Neutrophils # 18.0 H Neutrophils % 64.0 Platelet Count 259 Prothrombin Time 13.6 Prothrombin Time Ratio 1.1 Red Blood Count 5.01 Red Cell Distribution Width 14.4 White Blood Count 28.2 H Alanine Aminotransferase (ALT/SGPT) 179 H Albumin 4.5 Albumin/Globulin Ratio 1.36 Alkaline Phosphatase 248 H Anion Gap 21 H Aspartate Amino Transf (AST/SGOT) 488 H Blood Urea Nitrogen 17 Calcium Level 10.0 Carbon Dioxide Level 28 Chloride Level 98 Creatinine 0.87 Direct Bilirubin 0.50 H Globulin 3.30 H Glucose Level 281 H Indirect Bilirubin 0.7 Lipase 25123 H Potassium Level 4.3 Sodium Level 143 Total Bilirubin 1.2 Total Protein 7.8 Troponin I < 0.010 Lactic Acid Level 5.7 *H Urine Bacteria MODERATE Urine Bilirubin 2+ H Urine Clarity SLIGHTLY CLOUDY Urine Color SHASHI Urine Glucose 0.1% H Urine Hemoglobin NEGATIVE Urine Ictotest NEGATIVE Urine Ketones TRACE H Urine Leukocyte Esterase NEGATIVE Urine Microscopic RBC 0-2 Urine Microscopic WBC 5-10 Urine Nitrite NEGATIVE Urine Specific [place] 1.025 Urine Squamous Epithelial Cells MANY Urine Total Protein 1+ H Urine Urobilinogen 2.0 E.U./dL H Urine pH 5.5 Test 09/01/16 21:15 09/01/16 23:10 09/02/16 09:14 Lactic Acid Level 4.6 *H 3.5 H 2.0 Alanine Aminotransferase (ALT/SGPT) 139 H Albumin 3.5 # Albumin/Globulin Ratio 1.16 Alkaline Phosphatase 160 H Anion Gap 18 H Aspartate Amino Transf (AST/SGOT) 213 H Band Neutrophils % 1.0 Basophils # Basophils % Blood Morphology Comment Blood Urea Nitrogen 14 Calcium Level 8.6 Carbon Dioxide Level 26 Chloride Level 102 Creatinine 0.65 Differential Comment MANUAL DIFF Direct Bilirubin 0.00 # Eosinophils # Eosinophils % Globulin 3.00 Glucose Level 248 H Hematocrit 38.1 Hemoglobin 12.8 Indirect Bilirubin 0.7 Lymphocytes # 2.0 Lymphocytes % 8.0 L Magnesium Level 1.5 L Mean Corpuscular Hemoglobin 29.0 Mean Corpuscular Hemoglobin Concent 33.6 Mean Corpuscular Volume 86.4 Mean Platelet Volume 9.4 Monocytes # 0.8 Monocytes % 3.0 Neutrophils # 22.1 H Neutrophils % 88.0 H Nucleated Red Blood Cells # Nucleated Red Blood Cells % Platelet Count 212 Potassium Level 3.9 Red Blood Count 4.41 Red Cell Distribution Width 14.5 Sodium Level 142 Total Bilirubin 0.7 Total Protein 6.5 # White Blood Count 25.1 H Medications Medications Current Medications Dextrose/Sodium Chloride (D5-1/2ns) 1,000 ml @ 125 mls/hr Q8H IV Last administered on 09/02/16at 08:33; Admin Dose 125 MLS/HR; Start 09/02/16 at 06: 28 Lorazepam (Ativan) 0.5 mg Q6H PRN IV ANXIETY; Start 09/02/16 at 06:30 Ondansetron HCl (Zofran Inj) 4 mg Q6H PRN IV NAUSEA AND/OR VOMITING; Start at 06:30 Metoclopramide HCl (Reglan) 10 mg Q6H PRN IV NAUSEA AND/OR VOMITING; Start at 06:30 Magnesium Hydroxide 30 ml 30 ml DAILY PRN PO CONSTIPATION; Start 09/02/16 at 06:30 Imipenem/ Cilastatin Sodium (Primaxin 500 Mg/ 100 ml (Pmx)) 100 ml @ 100 mls/ hr Q6H IVPB Last administered on 09/02/16at 13:46; Admin Dose 100 MLS/HR; Start 09/02/16 at 06:30 Morphine Sulfate (morphine) 4 mg Q4H PRN IV pain Last administered on at 14:16; Admin Dose 4 MG; Start 09/02/16 at 07:00 Famotidine (Pepcid Iv) 20 mg DAILY IV Last administered on 09/02/16at 09:26; Admin Dose 20 MG; Start 09/02/16 at 09:00 Insulin Glargine (Lantus) 5 unit QPM SC ; Start 09/02/16 at 21:00 Diagnostic Test (Pha) (Accucheck) 1 ea 02 XX ; Start 09/03/16 at 02:00 Miscellaneous Information 1 ea NOTE XX ; Start 09/02/16 at 17:00 Glucose (Glutose) 15 gm Q15M PRN PO DECREASED GLUCOSE; Start 09/02/16 at 17:00 Glucose (Glutose) 22.5 gm Q15M PRN PO DECREASED GLUCOSE; Start 09/02/16 at 17: 00 Dextrose (D50w Syringe) 25 ml Q15M PRN IV DECREASED GLUCOSE; Start 09/02/16 at 17:00 Dextrose (D50w Syringe) 50 ml Q15M PRN IV DECREASED GLUCOSE; Start 09/02/16 at 17:00 Glucagon (Glucagen) 1 mg Q15M PRN IM DECREASED GLUCOSE; Start 09/02/16 at 17: 00 Glucose (Glutose) 15 gm Q15M PRN BUCCAL DECREASED GLUCOSE; Start 09/02/16 at 17:00 LEONARDO YATES MD Sep 02, 2016 16:45
[2016-09-02] MEDS ORDERED: GLUCOSE GEL 15 GRAM TUBE PO PRN ×2 (17:00)
[2016-09-02] MEDS ORDERED: GLUCAGON 1 MG INJ IM PRN (17:00)
[2016-09-02] MEDS ORDERED: VANCOMYCIN 1.5 GM in SOD CHLORIDE 0.9% 250 ML IVPB ONE (17:00)
[2016-09-02] MEDS ORDERED: DEXTROSE 50% 50 ML SYRINGE IV PRN ×2 (17:00)
[2016-09-02] MEDS ORDERED: GLUCOSE GEL 15 GRAM TUBE BUCCAL PRN (17:00)
[2016-09-02] MEDS: INSULIN ASPART [NOVOLOG] 3 ML PEN SC SCH ×2 (19:40→21:00)
[2016-09-02] MEDS: INSULIN GLARGINE [LANtus] 3 ML PEN SC SCH (21:00)
[2016-09-03] VITALS (22 sets, daily range): BP systolic 109–160; BP diastolic 55–74; PULSE 50–75; RESP 16–22
[2016-09-03] MEDS: DEXTROSE 5%-0.45% NACL 1,000 ML IV SCH ×3 (01:25→14:44)
[2016-09-03] MEDS: IMIPENEM-CILAST 500MG IV (PMX) 100 ML IVPB SCH ×4 (01:27→21:21)
[2016-09-03] MEDS: ACCUCHECK XX SCH (02:00)
[2016-09-03] MEDS: INSULIN ASPART [NOVOLOG] 3 ML PEN SC SCH ×4 (07:38→20:35)
[2016-09-03 08:04] LABS: EOSINOPHILS # 0.1 10^3/ul (0.0-0.5); EOSINOPHILS % 0.3 % (0.0-7.0); HEMATOCRIT 36.3 % (37.0-47.0); HEMOGLOBIN 12.3 g/dl (12.0-16.0); LYMPHOCYTES # 1.7 10^3/ul (0.8-2.9); LYMPHOCYTES % 10.7 % (15.0-51.0); MEAN CORPUSCULAR HEMOGLOBIN 29.5 pg (29.0-33.0); MEAN CORPUSCULAR VOLUME 86.8 fl (82.0-101.0); MEAN PLATELET VOLUME 9.9 fl (7.4-10.4); MONOCYTE # 0.8 10^3/ul (0.3-0.9); MONOCYTES % 5.3 % (0.0-11.0); NEUTROPHIL # 13.2 10^3/ul (1.6-7.5); NEUTROPHILS % 83.7 % (39.0-77.0); PLATELET COUNT 185 10^3/UL (140-440); RED BLOOD COUNT 4.18 10^6/ul (4.20-5.40); RED CELL DISTRIBUTION WIDTH 14.5 % (11.5-14.5); UNCORRECTED WBC 15.8 10^3/ul (4.8-10.8); WHITE BLOOD COUNT 15.8 10^3/ul (4.8-10.8)
[2016-09-03 08:14] LABS: CONDITION 1
[2016-09-03 08:20] LABS: POTASSIUM 3.5 mmol/L (3.5-5.1)
[2016-09-03 08:22] LABS: CREATININE 0.56 mg/dl (0.44-1.00)
[2016-09-03 08:23] LABS: CALCIUM 8.4 mg/dl (8.4-10.2); PHOSPHORUS 2.4 mg/dl (2.5-4.9)
[2016-09-03 08:24] LABS: MAGNESIUM 1.7 mg/dl (1.7-2.5)
[2016-09-03] MEDS ORDERED: INFLUENZA VIRUS VACCINE 0.5 ML (DISPENSING) IM* ONE (09:00)
[2016-09-03] MEDS: FAMOTIDINE 20 MG INJ IV SCH (09:41)
--- NOTE | 2016-09-03 12:09 | PN ---
DATE: 09/03/2016 Ms. Chapin is now hospital day 3 from gallstone peritonitis. She is feeling better, complaining of l ess pain. PHYSICAL EXAMINATION: VITAL SIGNS: She is afebrile. Vital signs stable. ABDOMEN: Soft, still with epigastric and right upper quadrant tenderness, but less so. LABORATORY DATA: Reveal a white count of 16, hematocrit of 36 and platelets of 185. Sodium 140, po tassium 3.5, chloride 102, CO2 28, BUN and creatinine 11.6 and glucose 191. Her lipase is now down to 4324. ASSESSMENT AND PLAN: Ms. Sybil Yin is 71 female recovering from gallstone pancreatitis. 1. ERCP when clinically stable per GI. 2. Recommend laparoscopic cholecystectomy as outpatient in a few weeks. 3. Please reconsult general surgery as necessary but please have patient follow up in my office. Dictated By: HOWIE ESCOBEDO/DEMARCUS Conf#: [id number] DID#: [id number]
--- NOTE | 2016-09-03 14:52 | PN ---
Date/Time of Note Date/Time of Note DATE: 09/03/16 TIME: 14:50 Assessment/Plan VTE Prophylaxis VTE Prophylaxis Intervention: SCD's Lines/Catheters IV [facility]from [facility]): Peripheral IV Urinary Cath still in place: No Assessment/Plan Chief Complaint/Hosp Course IMPRESSION: 1. Acute cholecystitis with choledocholithiasis. General surgery and instrumentation supervisor has been consulted, n.p.o., IV fluids, Continue broad-spectrum IV antibiotics 2. Gallstone pancreatitis. General surgery and GI has been consulted Follow up lipase level in a.m. Continue IV fluid, broad-spectrum IV antibiotics, follow up GI recommendation for possible ERCP 3. Sepsis secondary to above. As above 4. Lactic acidosis. As above 5. Abnormal liver enzymes, secondary to #1. 6. Diabetes mellitus type 2, start patient on insulin sliding scale, low dose of Lantus, continue monitor We will continue monitor patient closely for recommendation management treatment as clinical course Problems: Subjective 24 Hr Interval Summary Free Text/Dictation Patient continues to complain of having midepigastric abdominal pain Positive for nausea without any vomiting NPO Exam/Review of Systems Vital Signs Vitals Vital Signs Date Time Temp Pulse Resp B/P Pulse Ox O2 Delivery O2 Flow Rate FiO2 09/03/16 12:32 75 09/03/16 11:21 98.8 16 124/68 97 09/03/16 08:34 Nasal Cannula 2.0 Intake and Output 09/02/16 09/02/16 09/03/16 15:00 23:00 07:00 Intake Total 250 ml 100 ml Balance 250 ml 100 ml Exam General: The patient is moderately overweight, Not in acute distress. HEENT: Atraumatic, normocephalic. The pupils are equal and round . Neck: Supple with full range of motion. Chest: Normal expansion of the thorax during inspiration Lungs: Clear to auscultation bilaterally Heart: Normal S1-S2, Regular rhythm and rate. Abdomen: Soft , midepigastric tenderness to deep palpation, nondistended , bowel sounds are present. Extremities: Normal to inspection, no edema no cyanosis Neurologic: Normal mental status,The patient is awake, alert and oriented . Results Result Diagram: 09/03/16 0701 09/03/16 0701 Results 24 hrs Laboratory Tests Test 09/02/16 17:28 09/02/16 20:57 09/03/16 07:01 09/03/16 07:34 Bedside Glucose 257 H 156 168 Anion Gap 14 Basophils # 0.0 Basophils % 0.0 Blood Urea Nitrogen 11 Calcium Level 8.4 Carbon Dioxide Level 28 Chloride Level 102 Creatinine 0.56 Eosinophils # 0.1 Eosinophils % 0.3 Glucose Level 191 Hematocrit 36.3 L Hemoglobin 12.3 Lipase 4324 H Lymphocytes # 1.7 Lymphocytes % 10.7 L Magnesium Level 1.7 Mean Corpuscular Hemoglobin 29.5 Mean Corpuscular Hemoglobin Concent 34.0 Mean Corpuscular Volume 86.8 Mean Platelet Volume 9.9 Monocytes # 0.8 Monocytes % 5.3 Neutrophils # 13.2 H Neutrophils % 83.7 H Nucleated Red Blood Cells # 0.0 Nucleated Red Blood Cells % 0.0 Phosphorus Level 2.4 L Platelet Count 185 Potassium Level 3.5 Red Blood Count 4.18 L Red Cell Distribution Width 14.5 Sodium Level 140 White Blood Count 15.8 #H Test 09/03/16 11:31 Bedside Glucose 185 Medications Medications Current Medications Dextrose/Sodium Chloride (D5-1/2ns) 1,000 ml @ 125 mls/hr Q8H IV Last administered on 09/03/16at 14:44; Admin Dose 125 MLS/HR; Start 09/02/16 at 06: 28 Lorazepam (Ativan) 0.5 mg Q6H PRN IV ANXIETY; Start 09/02/16 at 06:30 Ondansetron HCl (Zofran Inj) 4 mg Q6H PRN IV NAUSEA AND/OR VOMITING; Start at 06:30 Metoclopramide HCl (Reglan) 10 mg Q6H PRN IV NAUSEA AND/OR VOMITING; Start at 06:30 Magnesium Hydroxide 30 ml 30 ml DAILY PRN PO CONSTIPATION; Start 09/02/16 at 06:30 Imipenem/ Cilastatin Sodium (Primaxin 500 Mg/ 100 ml (Pmx)) 100 ml @ 100 mls/ hr Q6H IVPB Last administered on 09/03/16at 11:31; Admin Dose 100 MLS/HR; Start 09/02/16 at 06:30 Morphine Sulfate (morphine) 4 mg Q4H PRN IV pain Last administered on at 14:16; Admin Dose 4 MG; Start 09/02/16 at 07:00 Famotidine (Pepcid Iv) 20 mg DAILY IV Last administered on 09/03/16at 09:41; Admin Dose 20 MG; Start 09/02/16 at 09:00 Insulin Glargine (Lantus) 5 unit QPM SC Last administered on 09/02/16at 21:00; Admin Dose 5 UNIT; Start 09/02/16 at 21:00 Diagnostic Test (Pha) (Accucheck) 1 ea 02 XX ; Start 09/03/16 at 02:00 Miscellaneous Information 1 ea NOTE XX ; Start 09/02/16 at 17:00 Glucose (Glutose) 15 gm Q15M PRN PO DECREASED GLUCOSE; Start 09/02/16 at 17:00 Glucose (Glutose) 22.5 gm Q15M PRN PO DECREASED GLUCOSE; Start 09/02/16 at 17: 00 Dextrose (D50w Syringe) 25 ml Q15M PRN IV DECREASED GLUCOSE; Start 09/02/16 at 17:00 Dextrose (D50w Syringe) 50 ml Q15M PRN IV DECREASED GLUCOSE; Start 09/02/16 at 17:00 Glucagon (Glucagen) 1 mg Q15M PRN IM DECREASED GLUCOSE; Start 09/02/16 at 17: 00 Glucose 15 gm 15 gm Q15M PRN BUCCAL DECREASED GLUCOSE; Start 09/02/16 at 17:00 Vancomycin HCl (Vancocin) 250 ml @ 125 mls/hr Q24H IVPB ; Start 09/03/16 at 20 :00 LEONARDO YATES MD Sep 03, 2016 14:51
[2016-09-03] MEDS ORDERED: INDOMETHACIN 50 MG SUPP PR ONE (15:16)
[2016-09-03] MEDS ORDERED: IOHEXOL 300MG/ML 30 ML BTL ONE (15:17)
[2016-09-03] MEDS ORDERED: LIDOCAINE 2% (SDV) 5 ML INJ ONE (15:56)
[2016-09-03] MEDS ORDERED: PROPOFOL 20 ML ONE ×2 (15:56→16:11)
[2016-09-03] MEDS ORDERED: FENTAnyl 50 MCG/ML VIAL IV PRN (16:00)
[2016-09-03] MEDS ORDERED: hydrALAzine 20 MG INJ IV PRN (16:00)
[2016-09-03] MEDS ORDERED: NALOXONE (0.4 MG/ML) INJ IV PRN (16:00)
[2016-09-03] MEDS ORDERED: LABETALOL HCL 20MG INJ IV PRN (16:00)
[2016-09-03] MEDS ORDERED: EPHEDrine SULFATE 50 MG/5 ML SYG IV PRN (16:00)
[2016-09-03] MEDS ORDERED: ONDANSETRON 4 MG INJ IV PRN (16:00)
[2016-09-03] MEDS ORDERED: DIPHENHYDRAMINE 50 MG INJ IV PRN (16:00)
[2016-09-03] MEDS ORDERED: PHENYLephrine (100 MCG/ML) 5ML SYG IV PRN (16:00)
--- NOTE | 2016-09-03 17:47 | RADRPT ---
PROCEDURE: Intraoperative imaging for ERCP with fluoroscopy. CLINICAL INDICATION: Right upper quadrant pain. Intraoperative. TECHNIQUE: 3 images of the right upper quadrant of the abdomen were obtained in the operating room with an image intensifier. No radiologist was in attendance. 50 4.4 seconds of fluoroscopy time w as used. COMPARISON: MRCP dated 09/01/2016. FINDINGS: Images demonstrate the endoscope in position. Contrast was injected into the common bile duct. The re are filling defects consistent with stones as seen on prior MRCP. The common bile duct is not di lated. The pancreatic duct was not injected. IMPRESSION: 1. ERCP as described above. RPTAT: QQ .Gregory Giordano MD, Date Time Electronically viewed and signed by .Gregory Giordano MD, on 09/03/2016 17:46 .R/
--- NOTE | 2016-09-03 18:05 | GILP ---
DATE OF PROCEDURE: NAME OF PROCEDURE: Endoscopic retrograde cholangiopancreatography with sphincterotomy plus balloon dilatation of ampulla of Vater and stone removal. SURGEON: Lulu Whitley MD. PREMEDICATION: Monitored anesthesia care by anesthesiologist. INSTRUMENT USED: Olympus side viewing endoscope. TECHNIQUE: After informed consent, with the patient/relatives understanding the procedure, its indic ations, potential risks, and complications, including but not limited to: allergic reaction, bleedin g, perforation or infection, and after all pertinent questions were answered to the patient's satisf action, the patient/relatives signed witnessed informed consent. Following this, premedication was administered slowly IV push under careful cardiovascular and respi ratory monitoring with pulse oximetry, automatic blood pressure and assembler convertible top. Once the sedative effect was achieved, the patient was place in the prone position in the radiology special procedures suite; the side viewing panendoscope was introduced and advanced under visual con trol. Careful examination of the upper gastrointestinal tract, both on insertion as well as withdrawal of the instrument disclosed the following findings: ESOPHAGUS: The mucosa of the entire esophagus appears within normal limits. There is no evidence o f esophagitis, varices, neoplasm, or stricture. No hiatal hernia identified. STOMACH: Upon entrance to the stomach, air was insufflated, the gastric gaspar distended normally. The mucosa of the fundus, body, and antrum of the stomach was carefully examined both head-on and on retroflexion, and shows no abnormalities. There is no evidence of gastritis, ulcers, or neoplasm. PYLORUS: The pylorus appears patent and within normal limits, with no evidence of gastric outlet ob struction. DUODENUM: The duodenal mucosa was carefully examined in the duodenal bulb as well as the second por tion of the duodenum and appears unremarkable with no evidence of duodenitis, ulcer, or neoplasm. AMPULLA OF VATER: The instrument was advanced to the second portion of the duodenum. The mucosa was carefully examined. The ampulla was identified. It was cannulated without difficulty, opacifying the biliary tree, which is dilated to at least 14, maybe 15, mm and shows the presence of 2 stones; one measuring 6 and the second one measuring at least 9 mm. The ampulla is fairly small and for thi s reason only a small sphincterotomy is possible. We proceeded then to introduce a Hurricane balloo n and, with this, we dilated the ampulla to 10 mm, and following this, a balloon catheter was utiliz ed to extract the previously described stones. The patient tolerated the procedure well. No eviden ce of immediate complications present. IMPRESSION: 1. Two stones in the common bile duct measuring 6 and 9 mm. 2. Post small sphincterotomy plus balloon dilatation of the ampulla to 10 mm post stone extraction. PLAN: Observation. Laparoscopic cholecystectomy as soon as possible is recommended, as the patient is at high risk of recurrence of choledocholithiasis. Dictated By: LULU WHITLEY MS/DEMARCUS Conf#: [id number] DID#: [id number] CC: RODRI SMALLWOOD MD; LULU WHITLEY;*End*
[2016-09-03] MEDS ORDERED: VANCOMYCIN 1 GM in NS 250 ML IVPB SCH (20:00)
[2016-09-03] MEDS: INSULIN GLARGINE [LANtus] 3 ML PEN SC SCH (20:34)
[2016-09-03 23:42] LABS: ALBUMIN 3.1 g/dl (3.3-4.9)
[2016-09-03 23:43] LABS: POTASSIUM 3.4 mmol/L (3.5-5.1)
[2016-09-03 23:45] LABS: BILIRUBIN,INDIRECT 0.5 mg/dl (0-1.1); BILIRUBIN,TOTAL 0.5 mg/dl (0.2-1.3); CREATININE 0.52 mg/dl (0.44-1.00)
[2016-09-03 23:46] LABS: TOTAL PROTEIN 6.2 g/dl (6.1-8.1)
[2016-09-03 23:47] LABS: CALCIUM 8.7 mg/dl (8.4-10.2)
[2016-09-04] VITALS (12 sets, daily range): BP systolic 144–158; BP diastolic 65–72; PULSE 52–54; RESP 16–18
[2016-09-04] MEDS: ACCUCHECK XX SCH (02:00)
[2016-09-04] MEDS: DEXTROSE 5%-0.45% NACL 1,000 ML IV SCH ×3 (03:14→14:40)
[2016-09-04] MEDS: morphine 4 MG/ML VIAL IV PRN (03:22)
[2016-09-04] MEDS: IMIPENEM-CILAST 500MG IV (PMX) 100 ML IVPB SCH ×3 (05:43→22:00)
[2016-09-04 07:10] LABS: BASOPHILS % 0.4 % (0.0-2.0); EOSINOPHILS % 0.4 % (0.0-7.0); HEMATOCRIT 34.3 % (37.0-47.0); HEMOGLOBIN 11.7 g/dl (12.0-16.0); LYMPHOCYTES # 2.1 10^3/ul (0.8-2.9); LYMPHOCYTES % 20.2 % (15.0-51.0); MEAN CORPUSCULAR HEMOGLOBIN 29.5 pg (29.0-33.0); MEAN CORPUSCULAR HGB CONC 34.2 g/dl (32.0-37.0); MEAN CORPUSCULAR VOLUME 86.2 fl (82.0-101.0); MEAN PLATELET VOLUME 9.7 fl (7.4-10.4); MONOCYTE # 0.7 10^3/ul (0.3-0.9); MONOCYTES % 6.9 % (0.0-11.0); NEUTROPHIL # 7.7 10^3/ul (1.6-7.5); NEUTROPHILS % 72.1 % (39.0-77.0); PLATELET COUNT 174 10^3/UL (140-440); RED BLOOD COUNT 3.97 10^6/ul (4.20-5.40); RED CELL DISTRIBUTION WIDTH 14.1 % (11.5-14.5); UNCORRECTED WBC 10.6 10^3/ul (4.8-10.8); WHITE BLOOD COUNT 10.6 10^3/ul (4.8-10.8)
[2016-09-04 07:20] LABS: ALBUMIN 2.9 g/dl (3.3-4.9)
[2016-09-04 07:21] LABS: CONDITION 1
[2016-09-04 07:21] LABS: POTASSIUM 3.4 mmol/L (3.5-5.1)
[2016-09-04 07:23] LABS: BILIRUBIN,INDIRECT 0.5 mg/dl (0-1.1); BILIRUBIN,TOTAL 0.5 mg/dl (0.2-1.3); CREATININE 0.52 mg/dl (0.44-1.00); TOTAL PROTEIN 5.7 g/dl (6.1-8.1)
[2016-09-04 07:24] LABS: CALCIUM 8.3 mg/dl (8.4-10.2); MAGNESIUM 1.6 mg/dl (1.7-2.5)
[2016-09-04] MEDS: INSULIN ASPART [NOVOLOG] 3 ML PEN SC SCH ×4 (08:32→20:53)
[2016-09-04] MEDS: FAMOTIDINE 20 MG INJ IV SCH (08:33)
--- NOTE | 2016-09-04 15:18 | PN ---
Date/Time of Note Date/Time of Note DATE: 09/04/16 TIME: 15:16 Assessment/Plan VTE Prophylaxis VTE Prophylaxis Intervention: SCD's Lines/Catheters IV C[facility]ter Type (from [facility] Peripheral IV Urinary Cath still in place: No Assessment/Plan Chief Complaint/Hosp Course IMPRESSION: 1. Acute cholecystitis with choledocholithiasis. General surgery and banquet server on call has been consulted, n.p.o., IV fluids, Continue broad-spectrum IV antibiotics 2. Gallstone pancreatitis. General surgery and GI has been consulted Follow up lipase level in a.m. Continue IV fluid, broad-spectrum IV antibiotics, status post ERCP with the finding of Two stones in the common bile duct measuring 6 and 9 mm and Post small sphincterotomy plus balloon dilatation of the ampulla to 10 mm post stone extraction. 3. Sepsis secondary to above. As above 4. Lactic acidosis. As above 5. Abnormal liver enzymes, secondary to #1. 6. Diabetes mellitus type 2, start patient on insulin sliding scale, low dose of Lantus, continue monitor We will continue monitor patient closely for recommendation management treatment as clinical course Problems: Subjective 24 Hr Interval Summary Free Text/Dictation Status post ERCP on Minimal abdominal pain No nausea vomiting diarrhea Exam/Review of Systems Vital Signs Vitals Vital Signs Date Time Temp Pulse Resp B/P Pulse Ox O2 Delivery O2 Flow Rate FiO2 09/04/16 12:29 52 09/04/16 11:24 98.8 16 149/70 96 09/03/16 18:06 Room Air 09/03/16 16:30 6.0 Intake and Output 09/03/16 09/03/16 09/04/16 15:00 23:00 07:00 Intake Total 1000 ml 700 ml 950 ml Balance 1000 ml 700 ml 950 ml Exam General: The patient is well-developed, Not in acute distress. HEENT: Atraumatic, normocephalic. The pupils are equal and round . Neck: Supple with full range of motion. Chest: Normal expansion of the thorax during inspiration Lungs: Clear to auscultation bilaterally Heart: Normal S1-S2, Regular rhythm and rate. Abdomen: Soft , minimal tenderness in epigastric region, nondistended , bowel sounds are present. Extremities: Normal to inspection, no edema no cyanosis Neurologic: Normal mental status,The patient is awake, alert and oriented . Results Result Diagram: 09/04/16 0552 09/04/16 0555 Results 24 hrs Laboratory Tests Test 09/03/16 17:32 09/03/16 20:30 09/03/16 23:10 09/04/16 01:26 Bedside Glucose 143 195 190 Alanine Aminotransferase (ALT/SGPT) 74 H Albumin 3.1 L Albumin/Globulin Ratio 1.00 Alkaline Phosphatase 156 H Anion Gap 14 Aspartate Amino Transf (AST/SGOT) 49 H Blood Urea Nitrogen 10 Calcium Level 8.7 Carbon Dioxide Level 27 Chloride Level 105 Creatinine 0.52 Direct Bilirubin 0.00 Globulin 3.10 Glucose Level 159 Indirect Bilirubin 0.5 Potassium Level 3.4 L Sodium Level 143 Total Bilirubin 0.5 Total Protein 6.2 Test 09/04/16 05:52 09/04/16 05:55 09/04/16 05:57 09/04/16 07:47 Basophils # 0.0 Basophils % 0.4 Eosinophils # 0.0 Eosinophils % 0.4 Hematocrit 34.3 L Hemoglobin 11.7 L Lymphocytes # 2.1 Lymphocytes % 20.2 Mean Corpuscular Hemoglobin 29.5 Mean Corpuscular Hemoglobin Concent 34.2 Mean Corpuscular Volume 86.2 Mean Platelet Volume 9.7 Monocytes # 0.7 Monocytes % 6.9 Neutrophils # 7.7 H Neutrophils % 72.1 Nucleated Red Blood Cells # 0.0 Nucleated Red Blood Cells % 0.0 Platelet Count 174 Red Blood Count 3.97 L Red Cell Distribution Width 14.1 White Blood Count 10.6 # Alanine Aminotransferase (ALT/SGPT) 65 Albumin 2.9 L Alkaline Phosphatase 149 H Anion Gap 11 Aspartate Amino Transf (AST/SGOT) 40 Blood Urea Nitrogen 10 Calcium Level 8.3 L Carbon Dioxide Level 27 Chloride Level 106 Creatinine 0.52 Direct Bilirubin 0.00 Glucose Level 192 Indirect Bilirubin 0.5 Magnesium Level 1.6 L Potassium Level 3.4 L Sodium Level 141 Total Bilirubin 0.5 Total Protein 5.7 L Lipase 2546 H Bedside Glucose 164 Test 09/04/16 11:43 Bedside Glucose 191 Medications Medications Current Medications Dextrose/Sodium Chloride (D5-1/2ns) 1,000 ml @ 125 mls/hr Q8H IV Last administered on 09/04/16at 14:40; Admin Dose 125 MLS/HR; Start 09/02/16 at 06: 28 Lorazepam (Ativan) 0.5 mg Q6H PRN IV ANXIETY; Start 09/02/16 at 06:30 Ondansetron HCl (Zofran Inj) 4 mg Q6H PRN IV NAUSEA AND/OR VOMITING; Start at 06:30 Metoclopramide HCl (Reglan) 10 mg Q6H PRN IV NAUSEA AND/OR VOMITING; Start at 06:30 Magnesium Hydroxide (Milk Of Mag) 30 ml DAILY PRN PO CONSTIPATION; Start 09/02 at 06:30 Morphine Sulfate (morphine) 4 mg Q4H PRN IV pain Last administered on at 03:22; Admin Dose 4 MG; Start 09/02/16 at 07:00 Famotidine (Pepcid Iv) 20 mg DAILY IV Last administered on 09/04/16at 08:33; Admin Dose 20 MG; Start 09/02/16 at 09:00 Insulin Glargine (Lantus) 5 unit QPM SC Last administered on 09/03/16at 20:34; Admin Dose 5 UNIT; Start 09/02/16 at 21:00 Diagnostic Test (Pha) (Accucheck) 1 ea 02 XX Last administered on 09/04/16at 02 :00; Admin Dose 1 EA; Start 09/03/16 at 02:00 Miscellaneous Information 1 ea NOTE XX ; Start 09/02/16 at 17:00 Glucose (Glutose) 15 gm Q15M PRN PO DECREASED GLUCOSE; Start 09/02/16 at 17:00 Glucose (Glutose) 22.5 gm Q15M PRN PO DECREASED GLUCOSE; Start 09/02/16 at 17: 00 Dextrose (D50w Syringe) 25 ml Q15M PRN IV DECREASED GLUCOSE; Start 09/02/16 at 17:00 Dextrose (D50w Syringe) 50 ml Q15M PRN IV DECREASED GLUCOSE; Start 09/02/16 at 17:00 Glucagon (Glucagen) 1 mg Q15M PRN IM DECREASED GLUCOSE; Start 09/02/16 at 17: 00 Glucose 15 gm 15 gm Q15M PRN BUCCAL DECREASED GLUCOSE; Start 09/02/16 at 17:00 Vancomycin HCl 250 ml @ 125 mls/hr Q24H IVPB Last administered on 09/03/16at 20:25; Admin Dose 125 MLS/HR; Start 09/03/16 at 20:00 Imipenem/ Cilastatin Sodium (Primaxin 500 Mg/ 100 ml (Pmx)) 100 ml @ 100 mls/ hr Q8 IVPB Last administered on 09/04/16at 14:40; Admin Dose 100 MLS/HR; Start 09/03/16 at 22:00 LEONARDO YATES MD Sep 04, 2016 15:18
[2016-09-04] MEDS ORDERED: POTASSIUM CHLORIDE 20 MEQ in SOD CHLORIDE 0.9% 100 ML IVPB ONE (15:30)
[2016-09-04] MEDS: INSULIN GLARGINE [LANtus] 3 ML PEN SC SCH (20:56)
[2016-09-05] VITALS (12 sets, daily range): BP systolic 154–170; BP diastolic 66–74; PULSE 48–63; RESP 19–20
[2016-09-05] MEDS: ACCUCHECK XX SCH (02:00)
[2016-09-05] MEDS: DEXTROSE 5%-0.45% NACL 1,000 ML IV SCH ×4 (06:00→22:28)
[2016-09-05] MEDS: IMIPENEM-CILAST 500MG IV (PMX) 100 ML IVPB SCH ×3 (06:05→20:54)
[2016-09-05 07:54] LABS: BASOPHILS % 0.4 % (0.0-2.0); EOSINOPHILS # 0.1 10^3/ul (0.0-0.5); HEMATOCRIT 35.7 % (37.0-47.0); HEMOGLOBIN 12.2 g/dl (12.0-16.0); LYMPHOCYTES # 2.2 10^3/ul (0.8-2.9); LYMPHOCYTES % 25.4 % (15.0-51.0); MEAN CORPUSCULAR HEMOGLOBIN 29.5 pg (29.0-33.0); MEAN CORPUSCULAR HGB CONC 34.2 g/dl (32.0-37.0); MEAN CORPUSCULAR VOLUME 86.2 fl (82.0-101.0); MEAN PLATELET VOLUME 9.6 fl (7.4-10.4); MONOCYTE # 0.8 10^3/ul (0.3-0.9); MONOCYTES % 9.1 % (0.0-11.0); NEUTROPHIL # 5.5 10^3/ul (1.6-7.5); NEUTROPHILS % 64.1 % (39.0-77.0); PLATELET COUNT 181 10^3/UL (140-440); RED BLOOD COUNT 4.15 10^6/ul (4.20-5.40); RED CELL DISTRIBUTION WIDTH 14.3 % (11.5-14.5); UNCORRECTED WBC 8.6 10^3/ul (4.8-10.8); WHITE BLOOD COUNT 8.6 10^3/ul (4.8-10.8)
[2016-09-05 07:58] LABS: CONDITION 1
[2016-09-05 08:04] LABS: POTASSIUM 3.3 mmol/L (3.5-5.1)
[2016-09-05 08:07] LABS: CALCIUM 8.8 mg/dl (8.4-10.2); CREATININE 0.55 mg/dl (0.44-1.00)
[2016-09-05] MEDS: INSULIN ASPART [NOVOLOG] 3 ML PEN SC SCH ×4 (08:34→22:19)
[2016-09-05] MEDS: FAMOTIDINE 20 MG INJ IV SCH (08:37)
--- NOTE | 2016-09-05 16:37 | PN ---
Date/Time of Note Date/Time of Note DATE: 09/05/16 TIME: 16:33 Assessment/Plan VTE Prophylaxis VTE Prophylaxis Intervention: SCD's Lines/Catheters IV C[facility]ter Type (from [facility]): Peripheral IV Urinary Cath still in place: No Assessment/Plan Chief Complaint/Hosp Course IMPRESSION: 1. Acute cholecystitis with choledocholithiasis. General surgery and nurses supervisor has been consulted, n.p.o., IV fluids, Continue broad-spectrum IV antibiotics 2. Gallstone pancreatitis. General surgery and GI has been consulted No significant changes in lipase level, follow-up lipase level in a.m. Continue IV fluid, broad-spectrum IV antibiotics, status post ERCP with the finding of Two stones in the common bile duct measuring 6 and 9 mm and Post small sphincterotomy plus balloon dilatation of the ampulla to 10 mm post stone extraction. 3. Sepsis secondary to above. As above 4. Lactic acidosis. As above 5. Abnormal liver enzymes, secondary to #1. 6. Diabetes mellitus type 2, start patient on insulin sliding scale, low dose of Lantus, continue monitor We will continue monitor patient closely for recommendation management treatment as clinical course Problems: Subjective 24 Hr Interval Summary Free Text/Dictation Patient continues to complain of having minimal abdominal discomfort No nausea vomiting NPO, Exam/Review of Systems Vital Signs Vitals Vital Signs Date Time Temp Pulse Resp B/P Pulse Ox O2 Delivery O2 Flow Rate FiO2 09/05/16 16:06 55 09/05/16 15:41 98.4 20 170/72 98 09/03/16 18:06 Room Air 09/03/16 16:30 6.0 Intake and Output 09/04/16 09/04/16 09/05/16 14:59 22:59 06:59 Intake Total 820 ml Balance 820 ml Exam General: The patient is moderately overweight, Not in acute distress. HEENT: Atraumatic, normocephalic. The pupils are equal and round . Neck: Supple with full range of motion. Chest: Normal expansion of the thorax during inspiration Lungs: Clear to auscultation bilaterally Heart: Normal S1-S2, Regular rhythm and rate. Abdomen: Soft , minimally tender, nondistended , bowel sounds are present. Extremities: Normal to inspection, no edema no cyanosis Neurologic: Normal mental status,The patient is awake, alert and oriented . Results Result Diagram: 09/05/16 0630 09/05/16 0630 Results 24 hrs Laboratory Tests Test 09/04/16 17:08 09/04/16 20:43 09/05/16 06:30 09/05/16 08:06 Bedside Glucose 163 147 191 Anion Gap 16 Basophils # 0.0 Basophils % 0.4 Blood Urea Nitrogen 8 Calcium Level 8.8 Carbon Dioxide Level 25 Chloride Level 106 Creatinine 0.55 Eosinophils # 0.1 Eosinophils % 1.0 Glucose Level 181 Hematocrit 35.7 L Hemoglobin 12.2 Hemoglobin A1c 10.6 H Lipase 2525 H Lymphocytes # 2.2 Lymphocytes % 25.4 Mean Corpuscular Hemoglobin 29.5 Mean Corpuscular Hemoglobin Concent 34.2 Mean Corpuscular Volume 86.2 Mean Platelet Volume 9.6 Monocytes # 0.8 Monocytes % 9.1 Neutrophils # 5.5 Neutrophils % 64.1 Nucleated Red Blood Cells # 0.0 Nucleated Red Blood Cells % 0.0 Platelet Count 181 Potassium Level 3.3 L Red Blood Count 4.15 L Red Cell Distribution Width 14.3 Sodium Level 144 White Blood Count 8.6 Test 09/05/16 11:56 Bedside Glucose 276 H Medications Medications Current Medications Dextrose/Sodium Chloride (D5-1/2ns) 1,000 ml @ 125 mls/hr Q8H IV Last administered on 09/05/16at 16:19; Admin Dose 125 MLS/HR; Start 09/02/16 at 06: 28 Lorazepam (Ativan) 0.5 mg Q6H PRN IV ANXIETY; Start 09/02/16 at 06:30 Ondansetron HCl (Zofran Inj) 4 mg Q6H PRN IV NAUSEA AND/OR VOMITING; Start at 06:30 Metoclopramide HCl (Reglan) 10 mg Q6H PRN IV NAUSEA AND/OR VOMITING; Start at 06:30 Magnesium Hydroxide (Milk Of Mag) 30 ml DAILY PRN PO CONSTIPATION; Start 09/02 at 06:30 Morphine Sulfate (morphine) 4 mg Q4H PRN IV pain Last administered on at 03:22; Admin Dose 4 MG; Start 09/02/16 at 07:00 Famotidine (Pepcid Iv) 20 mg DAILY IV Last administered on 09/05/16at 08:37; Admin Dose 20 MG; Start 09/02/16 at 09:00 Insulin Glargine (Lantus) 5 unit QPM SC Last administered on 09/04/16at 20:56; Admin Dose 5 UNIT; Start 09/02/16 at 21:00 Diagnostic Test (Pha) (Accucheck) 1 ea 02 XX Last administered on 09/04/16at 02 :00; Admin Dose 1 EA; Start 09/03/16 at 02:00 Miscellaneous Information 1 ea NOTE XX ; Start 09/02/16 at 17:00 Glucose (Glutose) 15 gm Q15M PRN PO DECREASED GLUCOSE; Start 09/02/16 at 17:00 Glucose (Glutose) 22.5 gm Q15M PRN PO DECREASED GLUCOSE; Start 09/02/16 at 17: 00 Dextrose (D50w Syringe) 25 ml Q15M PRN IV DECREASED GLUCOSE; Start 09/02/16 at 17:00 Dextrose (D50w Syringe) 50 ml Q15M PRN IV DECREASED GLUCOSE; Start 09/02/16 at 17:00 Glucagon (Glucagen) 1 mg Q15M PRN IM DECREASED GLUCOSE; Start 09/02/16 at 17: 00 Glucose 15 gm 15 gm Q15M PRN BUCCAL DECREASED GLUCOSE; Start 09/02/16 at 17:00 Imipenem/ Cilastatin Sodium (Primaxin 500 Mg/ 100 ml (Pmx)) 100 ml @ 100 mls/ hr Q8 IVPB Last administered on 09/05/16at 13:37; Admin Dose 100 MLS/HR; Start 09/03/16 at 22:00 Simethicone (Mylicon) 80 mg Q8H PRN PO DISTENSION/GAS/BLOATING Last administered on 09/05/16at 06:10; Admin Dose 80 MG; Start 09/04/16 at 21:00 LEONARDO YATES MD Sep 05, 2016 16:36
--- NOTE | 2016-09-05 18:09 | CONS ---
Date/Time of Note Date/Time of Note DATE: 09/05/16 TIME: 18:08 Assessment/Plan Assessment/Plan Additional Assessment/Plan Cholecystitis with cholelithiasis and choledocholithiasis * s/p ERCP * Two stones in the common bile duct measuring 6 and 9 mm. * Post small sphincterotomy plus balloon dilatation of the ampulla to 10 mm post stone extraction. * Monitor lipase, trending downward * Advance diet as tolerated * IVF hydration w/ pain management * Outpatient cholecystectomy with Further recommendations depend on clinical course Patient seen in collaboration with Dr. Whitley Consultation Date/Type/Reason Admit Date/Time Sep 01, 2016 at 20:52 Initial Consult Date 24 HR Interval Summary Free Text/Dictation Plan for outpatient cholecystectomy with We will begin to advance diet Overall abdominal pain improving ERCP notes normal GI presentation Patient status post 2 stones extracted Exam/Review of Systems Vital Signs Vitals Vital Signs Date Time Temp Pulse Resp B/P Pulse Ox O2 Delivery O2 Flow Rate FiO2 09/05/16 16:06 55 09/05/16 15:41 98.4 20 170/72 98 09/03/16 18:06 Room Air 09/03/16 16:30 6.0 Intake and Output 09/04/16 09/04/16 09/05/16 14:59 22:59 06:59 Intake Total 820 ml Balance 820 ml Exam Constitutional: alert, oriented, well developed Psych: nl mood/affect Head: normocephalic Eyes: EOMI ENMT: nl external ears & nose, nl lips & teeth, nl nasal mucosa & septum Respiratory: normal air movement Cardiovascular: regular rate and rhythm Gastrointestinal: soft, sligh tenderness (Right side) Neurological: SNOWBOARDING INSTRUCTOR II-XII intact Results Result Diagram: 09/05/16 0630 09/05/16 0630 Results 24 hrs Laboratory Tests Test 09/04/16 20:43 09/05/16 06:30 09/05/16 08:06 09/05/16 11:56 Bedside Glucose 147 191 276 H Anion Gap 16 Basophils # 0.0 Basophils % 0.4 Blood Urea Nitrogen 8 Calcium Level 8.8 Carbon Dioxide Level 25 Chloride Level 106 Creatinine 0.55 Eosinophils # 0.1 Eosinophils % 1.0 Glucose Level 181 Hematocrit 35.7 L Hemoglobin 12.2 Hemoglobin A1c 10.6 H Lipase 2525 H Lymphocytes # 2.2 Lymphocytes % 25.4 Mean Corpuscular Hemoglobin 29.5 Mean Corpuscular Hemoglobin Concent 34.2 Mean Corpuscular Volume 86.2 Mean Platelet Volume 9.6 Monocytes # 0.8 Monocytes % 9.1 Neutrophils # 5.5 Neutrophils % 64.1 Nucleated Red Blood Cells # 0.0 Nucleated Red Blood Cells % 0.0 Platelet Count 181 Potassium Level 3.3 L Red Blood Count 4.15 L Red Cell Distribution Width 14.3 Sodium Level 144 White Blood Count 8.6 Test 09/05/16 16:53 Bedside Glucose 204 Medications Medications Current Medications Dextrose/Sodium Chloride (D5-1/2ns) 1,000 ml @ 125 mls/hr Q8H IV Last administered on 09/05/16at 16:19; Admin Dose 125 MLS/HR; Start 09/02/16 at 06: 28 Lorazepam (Ativan) 0.5 mg Q6H PRN IV ANXIETY; Start 09/02/16 at 06:30 Ondansetron HCl (Zofran Inj) 4 mg Q6H PRN IV NAUSEA AND/OR VOMITING; Start at 06:30 Metoclopramide HCl (Reglan) 10 mg Q6H PRN IV NAUSEA AND/OR VOMITING; Start at 06:30 Magnesium Hydroxide (Milk Of Mag) 30 ml DAILY PRN PO CONSTIPATION; Start 09/02 at 06:30 Morphine Sulfate (morphine) 4 mg Q4H PRN IV pain Last administered on at 03:22; Admin Dose 4 MG; Start 09/02/16 at 07:00 Famotidine (Pepcid Iv) 20 mg DAILY IV Last administered on 09/05/16at 08:37; Admin Dose 20 MG; Start 09/02/16 at 09:00 Insulin Glargine (Lantus) 5 unit QPM SC Last administered on 09/04/16at 20:56; Admin Dose 5 UNIT; Start 09/02/16 at 21:00 Diagnostic Test (Pha) (Accucheck) 1 ea 02 XX Last administered on 09/04/16at 02 :00; Admin Dose 1 EA; Start 09/03/16 at 02:00 Miscellaneous Information 1 ea NOTE XX ; Start 09/02/16 at 17:00 Glucose (Glutose) 15 gm Q15M PRN PO DECREASED GLUCOSE; Start 09/02/16 at 17:00 Glucose (Glutose) 22.5 gm Q15M PRN PO DECREASED GLUCOSE; Start 09/02/16 at 17: 00 Dextrose (D50w Syringe) 25 ml Q15M PRN IV DECREASED GLUCOSE; Start 09/02/16 at 17:00 Dextrose (D50w Syringe) 50 ml Q15M PRN IV DECREASED GLUCOSE; Start 09/02/16 at 17:00 Glucagon (Glucagen) 1 mg Q15M PRN IM DECREASED GLUCOSE; Start 09/02/16 at 17: 00 Glucose 15 gm 15 gm Q15M PRN BUCCAL DECREASED GLUCOSE; Start 09/02/16 at 17:00 Imipenem/ Cilastatin Sodium (Primaxin 500 Mg/ 100 ml (Pmx)) 100 ml @ 100 mls/ hr Q8 IVPB Last administered on 09/05/16at 13:37; Admin Dose 100 MLS/HR; Start 09/03/16 at 22:00 Simethicone (Mylicon) 80 mg Q8H PRN PO DISTENSION/GAS/BLOATING Last administered on 09/05/16at 06:10; Admin Dose 80 MG; Start 09/04/16 at 21:00 CLYDE WAGNER Sep 05, 2016 18:09
[2016-09-05] MEDS: INSULIN GLARGINE [LANtus] 3 ML PEN SC SCH (22:19)
[2016-09-06] VITALS (12 sets, daily range): BP systolic 122–143; BP diastolic 58–74; PULSE 47–75; RESP 18–22
[2016-09-06] MEDS: ACCUCHECK XX SCH (03:23)
[2016-09-06] MEDS: DEXTROSE 5%-0.45% NACL 1,000 ML IV SCH ×3 (06:02→22:00)
[2016-09-06] MEDS: IMIPENEM-CILAST 500MG IV (PMX) 100 ML IVPB SCH ×3 (06:03→22:00)
[2016-09-06] MEDS: FAMOTIDINE 20 MG INJ IV SCH (08:05)
[2016-09-06 08:09] LABS: BASOPHILS % 0.3 % (0.0-2.0); EOSINOPHILS # 0.1 10^3/ul (0.0-0.5); EOSINOPHILS % 1.1 % (0.0-7.0); HEMATOCRIT 35.6 % (37.0-47.0); HEMOGLOBIN 12.1 g/dl (12.0-16.0); LYMPHOCYTES # 1.4 10^3/ul (0.8-2.9); LYMPHOCYTES % 17.1 % (15.0-51.0); MEAN CORPUSCULAR HEMOGLOBIN 29.4 pg (29.0-33.0); MEAN CORPUSCULAR VOLUME 86.4 fl (82.0-101.0); MEAN PLATELET VOLUME 9.6 fl (7.4-10.4); MONOCYTE # 0.7 10^3/ul (0.3-0.9); MONOCYTES % 9.2 % (0.0-11.0); NEUTROPHIL # 5.8 10^3/ul (1.6-7.5); NEUTROPHILS % 72.3 % (39.0-77.0); PLATELET COUNT 193 10^3/UL (140-440); RED BLOOD COUNT 4.11 10^6/ul (4.20-5.40); RED CELL DISTRIBUTION WIDTH 13.7 % (11.5-14.5)
[2016-09-06 08:11] LABS: CONDITION 1
[2016-09-06] MEDS: INSULIN ASPART [NOVOLOG] 3 ML PEN SC SCH ×4 (08:12→20:21)
[2016-09-06 08:29] LABS: POTASSIUM 3.3 mmol/L (3.5-5.1)
[2016-09-06 08:31] LABS: CREATININE 0.53 mg/dl (0.44-1.00)
[2016-09-06 08:32] LABS: CALCIUM 8.4 mg/dl (8.4-10.2)
--- NOTE | 2016-09-06 10:03 | CONS ---
Date/Time of Note Date/Time of Note DATE: 09/06/16 TIME: 10:03 Assessment/Plan Assessment/Plan Additional Assessment/Plan Cholecystitis with cholelithiasis and choledocholithiasis * s/p ERCP * Two stones in the common bile duct measuring 6 and 9 mm. * Post small sphincterotomy plus balloon dilatation of the ampulla to 10 mm post stone extraction. * Monitor lipase, trending downward * Advance diet as tolerated * IVF hydration w/ pain management * Outpatient cholecystectomy with Further recommendations depend on clinical course Patient seen in collaboration with Dr. Whitley Consultation Date/Type/Reason Admit Date/Time Sep 01, 2016 at 20:52 24 HR Interval Summary Free Text/Dictation Lipase continues to trend down Tolerating diet, will continue to advance OP cholecystectomy No reports of nausea or vomiting Exam/Review of Systems Vital Signs Vitals Vital Signs Date Time Temp Pulse Resp B/P Pulse Ox O2 Delivery O2 Flow Rate FiO2 09/06/16 08:45 97.7 54 20 143/74 95 09/06/16 04:00 Room Air 09/03/16 16:30 6.0 Intake and Output 09/05/16 09/05/16 09/06/16 15:00 23:00 07:00 Intake Total 720 ml 250 ml Balance 720 ml 250 ml Exam Constitutional: alert, oriented, well developed Psych: nl mood/affect Head: normocephalic Eyes: EOMI ENMT: nl external ears & nose, nl lips & teeth, nl nasal mucosa & septum Respiratory: normal air movement Cardiovascular: regular rate and rhythm Gastrointestinal: soft, slight tenderness (Right side) Neurological: SEWING TECHNIQUES DEMONSTRATOR II-XII intact Results Result Diagram: 09/06/16 0702 09/06/16 0702 Results 24 hrs Laboratory Tests Test 09/05/16 11:56 09/05/16 16:53 09/05/16 22:06 09/06/16 02:43 Bedside Glucose 276 H 204 193 208 Test 09/06/16 07:02 09/06/16 07:41 Anion Gap 16 Basophils # 0.0 Basophils % 0.3 Blood Urea Nitrogen 6 L Calcium Level 8.4 Carbon Dioxide Level 25 Chloride Level 105 Creatinine 0.53 Eosinophils # 0.1 Eosinophils % 1.1 Glucose Level 212 Hematocrit 35.6 L Hemoglobin 12.1 Lipase 1595 H Lymphocytes # 1.4 Lymphocytes % 17.1 Mean Corpuscular Hemoglobin 29.4 Mean Corpuscular Hemoglobin Concent 34.0 Mean Corpuscular Volume 86.4 Mean Platelet Volume 9.6 Monocytes # 0.7 Monocytes % 9.2 Neutrophils # 5.8 Neutrophils % 72.3 Nucleated Red Blood Cells # 0.0 Nucleated Red Blood Cells % 0.0 Platelet Count 193 Potassium Level 3.3 L Red Blood Count 4.11 L Red Cell Distribution Width 13.7 Sodium Level 143 White Blood Count 8.0 Bedside Glucose 211 Medications Medications Current Medications Dextrose/Sodium Chloride (D5-1/2ns) 1,000 ml @ 125 mls/hr Q8H IV Last administered on 09/06/16at 06:02; Admin Dose 125 MLS/HR; Start 09/02/16 at 06: 28 Lorazepam (Ativan) 0.5 mg Q6H PRN IV ANXIETY; Start 09/02/16 at 06:30 Ondansetron HCl (Zofran Inj) 4 mg Q6H PRN IV NAUSEA AND/OR VOMITING; Start at 06:30 Metoclopramide HCl (Reglan) 10 mg Q6H PRN IV NAUSEA AND/OR VOMITING; Start at 06:30 Magnesium Hydroxide (Milk Of Mag) 30 ml DAILY PRN PO CONSTIPATION; Start 09/02 at 06:30 Morphine Sulfate (morphine) 4 mg Q4H PRN IV pain Last administered on at 03:22; Admin Dose 4 MG; Start 09/02/16 at 07:00 Famotidine (Pepcid Iv) 20 mg DAILY IV Last administered on 09/06/16at 08:05; Admin Dose 20 MG; Start 09/02/16 at 09:00 Insulin Glargine (Lantus) 5 unit QPM SC Last administered on 09/05/16at 22:19; Admin Dose 5 UNIT; Start 09/02/16 at 21:00 Diagnostic Test (Pha) (Accucheck) 1 ea 02 XX Last administered on 09/06/16at 03 :23; Admin Dose 1 EA; Start 09/03/16 at 02:00 Miscellaneous Information 1 ea NOTE XX ; Start 09/02/16 at 17:00 Glucose (Glutose) 15 gm Q15M PRN PO DECREASED GLUCOSE; Start 12/26/16 at 17:00 Glucose (Glutose) 22.5 gm Q15M PRN PO DECREASED GLUCOSE; Start 09/02/16 at 17: 00 Dextrose (D50w Syringe) 25 ml Q15M PRN IV DECREASED GLUCOSE; Start 09/02/16 at 17:00 Dextrose (D50w Syringe) 50 ml Q15M PRN IV DECREASED GLUCOSE; Start 09/02/16 at 17:00 Glucagon (Glucagen) 1 mg Q15M PRN IM DECREASED GLUCOSE; Start 09/02/16 at 17: 00 Glucose 15 gm 15 gm Q15M PRN BUCCAL DECREASED GLUCOSE; Start 09/02/16 at 17:00 Imipenem/ Cilastatin Sodium (Primaxin 500 Mg/ 100 ml (Pmx)) 100 ml @ 100 mls/ hr Q8 IVPB Last administered on 09/06/16at 06:03; Admin Dose 100 MLS/HR; Start 09/03/16 at 22:00 Simethicone (Mylicon) 80 mg Q8H PRN PO DISTENSION/GAS/BLOATING Last administered on 09/05/16at 06:10; Admin Dose 80 MG; Start 09/04/16 at 21:00 CLYDE WAGNER Sep 06, 2016 10:03
[2016-09-06] MEDS: GUAIFENESIN 20 MG/ML 5ML CUP PO PRN ×2 (13:41→20:12)
--- NOTE | 2016-09-06 15:03 | PN ---
Date/Time of Note Date/Time of Note DATE: 09/06/16 TIME: 15:00 Assessment/Plan VTE Prophylaxis VTE Prophylaxis Intervention: SCD's Lines/Catheters [facility] Per[facility] IV Urinary Cath still in place: No Assessment/Plan Chief Complaint/Hosp Course IMPRESSION: 1. Acute cholecystitis with choledocholithiasis. General surgery and asbestos pipe supervisor has been consulted, n.p.o., IV fluids, Continue broad-spectrum IV antibiotics 2. Gallstone pancreatitis. General surgery and GI has been consulted Lipase level is improving, follow-up lipase level in a.m. Continue IV fluid, broad-spectrum IV antibiotics, status post ERCP with the finding of Two stones in the common bile duct measuring 6 and 9 mm and Post small sphincterotomy plus balloon dilatation of the ampulla to 10 mm post stone extraction. Plan to start oral intake "clear liquid diet" tomorrow if lipase level continued to improve and patient is asymptomatic 3. Sepsis secondary to above. As above 4. Lactic acidosis. As above 5. Abnormal liver enzymes, secondary to #1. 6. Diabetes mellitus type 2, start patient on insulin sliding scale, increase Lantus to 10 units, continue monitor We will continue monitor patient closely for recommendation management treatment as clinical course Problems: Subjective 24 Hr Interval Summary Free Text/Dictation Denies of any chest pain or shortness of breath Minimal abdominal discomfort NPO Exam/Review of Systems Vital Signs Vitals Vital Signs Date Time Temp Pulse Resp B/P Pulse Ox O2 Delivery O2 Flow Rate FiO2 09/06/16 12:49 71 09/06/16 12:29 99.3 21 143/69 98 09/06/16 04:00 Room Air 09/03/16 16:30 6.0 Intake and Output 09/05/16 09/05/16 09/06/16 15:00 23:00 07:00 Intake Total 720 ml 250 ml Balance 720 ml 250 ml Exam General: The patient is well-developed, Not in acute distress. HEENT: Atraumatic, normocephalic. The pupils are equal and round . Neck: Supple with full range of motion. Chest: Normal expansion of the thorax during inspiration Lungs: Clear to auscultation bilaterally Heart: Normal S1-S2, Regular rhythm and rate. Abdomen: Soft , minimal abdominal tenderness, nondistended , bowel sounds are present. Extremities: Normal to inspection, no edema no cyanosis Neurologic: Normal mental status,The patient is awake, alert and oriented . Results Result Diagram: 09/06/16 0709/06/16 0702 Results 24 hrs Laboratory Tests Test 09/05/16 16:53 09/05/16 22:06 09/06/16 02:43 09/06/16 07:02 Bedside Glucose 204 193 208 Anion Gap 16 Basophils # 0.0 Basophils % 0.3 Blood Urea Nitrogen 6 L Calcium Level 8.4 Carbon Dioxide Level 25 Chloride Level 105 Creatinine 0.53 Eosinophils # 0.1 Eosinophils % 1.1 Glucose Level 212 Hematocrit 35.6 L Hemoglobin 12.1 Lipase 1595 H Lymphocytes # 1.4 Lymphocytes % 17.1 Mean Corpuscular Hemoglobin 29.4 Mean Corpuscular Hemoglobin Concent 34.0 Mean Corpuscular Volume 86.4 Mean Platelet Volume 9.6 Monocytes # 0.7 Monocytes % 9.2 Neutrophils # 5.8 Neutrophils % 72.3 Nucleated Red Blood Cells # 0.0 Nucleated Red Blood Cells % 0.0 Platelet Count 193 Potassium Level 3.3 L Red Blood Count 4.11 L Red Cell Distribution Width 13.7 Sodium Level 143 White Blood Count 8.0 Test 09/06/16 07:41 09/06/16 11:40 Bedside Glucose 211 251 H Medications Medications Current Medications Dextrose/Sodium Chloride (D5-1/2ns) 1,000 ml @ 125 mls/hr Q8H IV Last administered on 09/06/16at 06:02; Admin Dose 125 MLS/HR; Start 09/02/16 at 06: 28 Lorazepam (Ativan) 0.5 mg Q6H PRN IV ANXIETY; Start 09/02/16 at 06:30 Ondansetron HCl (Zofran Inj) 4 mg Q6H PRN IV NAUSEA AND/OR VOMITING; Start at 06:30 Metoclopramide HCl (Reglan) 10 mg Q6H PRN IV NAUSEA AND/OR VOMITING; Start at 06:30 Magnesium Hydroxide (Milk Of Mag) 30 ml DAILY PRN PO CONSTIPATION; Start 09/02 at 06:30 Morphine Sulfate (morphine) 4 mg Q4H PRN IV pain Last administered on at 03:22; Admin Dose 4 MG; Start 09/02/16 at 07:00 Famotidine (Pepcid Iv) 20 mg DAILY IV Last administered on 09/06/16at 08:05; Admin Dose 20 MG; Start 09/02/16 at 09:00 Insulin Glargine (Lantus) 5 unit QPM SC Last administered on 09/05/16at 22:19; Admin Dose 5 UNIT; Start 09/02/16 at 21:00 Diagnostic Test (Pha) (Accucheck) 1 ea 02 XX Last administered on 09/06/16at 03 :23; Admin Dose 1 EA; Start 09/03/16 at 02:00 Miscellaneous Information 1 ea NOTE XX ; Start 09/02/16 at 17:00 Glucose (Glutose) 15 gm Q15M PRN PO DECREASED GLUCOSE; Start 09/02/16 at 17:00 Glucose (Glutose) 22.5 gm Q15M PRN PO DECREASED GLUCOSE; Start 09/02/16 at 17: 00 Dextrose (D50w Syringe) 25 ml Q15M PRN IV DECREASED GLUCOSE; Start 09/02/16 at 17:00 Dextrose (D50w Syringe) 50 ml Q15M PRN IV DECREASED GLUCOSE; Start 09/02/16 at 17:00 Glucagon (Glucagen) 1 mg Q15M PRN IM DECREASED GLUCOSE; Start 09/02/16 at 17: 00 Glucose 15 gm 15 gm Q15M PRN BUCCAL DECREASED GLUCOSE; Start 09/02/16 at 17:00 Imipenem/ Cilastatin Sodium (Primaxin 500 Mg/ 100 ml (Pmx)) 100 ml @ 100 mls/ hr Q8 IVPB Last administered on 09/06/16at 13:31; Admin Dose 100 MLS/HR; Start 09/03/16 at 22:00 Simethicone (Mylicon) 80 mg Q8H PRN PO DISTENSION/GAS/BLOATING Last administered on 09/05/16at 06:10; Admin Dose 80 MG; Start 09/04/16 at 21:00 Guaifenesin (Robitussin Liquid Cup) 100 mg Q6H PRN PO COUGH Last administered on 09/06/16at 13:41; Admin Dose 100 MG; Start 09/06/16 at 13:00 LEONARDO YATES MD Sep 06, 2016 15:03
[2016-09-06] MEDS: ACETAMINOPHEN 500 MG TAB PO PRN (16:12)
[2016-09-06] MEDS ORDERED: ACETAMINOPHEN 325 MG SUPP PR PRN (16:30)
[2016-09-06] MEDS ORDERED: INSULIN GLARGINE [LANtus] 3 ML PEN SC SCH (21:00)
[2016-09-07] VITALS (11 sets, daily range): BP systolic 127–189; BP diastolic 60–82; PULSE 51–66; RESP 17–20
[2016-09-07] MEDS: ACCUCHECK XX SCH (02:00)
[2016-09-07] MEDS: DEXTROSE 5%-0.45% NACL 1,000 ML IV SCH ×3 (05:19→23:40)
[2016-09-07] MEDS: IMIPENEM-CILAST 500MG IV (PMX) 100 ML IVPB SCH ×3 (05:19→20:19)
[2016-09-07 08:42] LABS: BASOPHILS % 0.4 % (0.0-2.0); EOSINOPHILS # 0.1 10^3/ul (0.0-0.5); EOSINOPHILS % 2.1 % (0.0-7.0); HEMATOCRIT 35.7 % (37.0-47.0); HEMOGLOBIN 12.1 g/dl (12.0-16.0); LYMPHOCYTES # 1.1 10^3/ul (0.8-2.9); LYMPHOCYTES % 21.1 % (15.0-51.0); MEAN CORPUSCULAR HEMOGLOBIN 29.2 pg (29.0-33.0); MEAN CORPUSCULAR VOLUME 86.1 fl (82.0-101.0); MEAN PLATELET VOLUME 9.4 fl (7.4-10.4); MONOCYTE # 0.8 10^3/ul (0.3-0.9); MONOCYTES % 15.5 % (0.0-11.0); NEUTROPHIL # 3.3 10^3/ul (1.6-7.5); NEUTROPHILS % 60.9 % (39.0-77.0); PLATELET COUNT 175 10^3/UL (140-440); RED BLOOD COUNT 4.15 10^6/ul (4.20-5.40); RED CELL DISTRIBUTION WIDTH 14.1 % (11.5-14.5); UNCORRECTED WBC 5.4 10^3/ul (4.8-10.8); WHITE BLOOD COUNT 5.4 10^3/ul (4.8-10.8)
[2016-09-07 08:48] LABS: CONDITION 1; LH ANALYZER COMMENTS 1
[2016-09-07 08:53] LABS: ALBUMIN 3.1 g/dl (3.3-4.9); POTASSIUM 3.2 mmol/L (3.5-5.1)
[2016-09-07 08:55] LABS: BILIRUBIN,INDIRECT 0.3 mg/dl (0-1.1); BILIRUBIN,TOTAL 0.3 mg/dl (0.2-1.3); CREATININE 0.58 mg/dl (0.44-1.00)
[2016-09-07 08:56] LABS: CALCIUM 8.5 mg/dl (8.4-10.2); MAGNESIUM 1.5 mg/dl (1.7-2.5); TOTAL PROTEIN 6.2 g/dl (6.1-8.1)
[2016-09-07] MEDS: FAMOTIDINE 20 MG INJ IV SCH (08:57)
[2016-09-07] MEDS: INSULIN ASPART [NOVOLOG] 3 ML PEN SC SCH ×4 (09:05→20:52)
--- NOTE | 2016-09-07 12:52 | PN ---
Date/Time of Note Date/Time of Note DATE: 09/07/16 TIME: 12:50 Assessment/Plan VTE Prophylaxis VTE Prophylaxis Intervention: other Lines/Catheters IV [facility] Type (from [facility]): Peripheral IV Urinary Cath still in place: No Assessment/Plan Problems: (1) Acute cholecystitis Status: Acute Comment: She is calming down with IV antibiotics. If all goes well she can be brought back electively for an outpatient laparoscopic cholecystectomy (2) Acute pancreatitis Status: Acute Comment: She is coming down after ERCP with removal of stones and dilatation of the ampulla. Continue to observe possibly able to discharge in the morning Qualifiers: Pancreatitis type: biliary Acute pancreatitis complication: no infection or necrosis Qualified Code: K85.10 - Acute biliary pancreatitis without infection or necrosis (3) Choledocholithiasis Status: Acute Comment: As above status post ERCP (4) Hyperglycemia due to type 2 diabetes mellitus Status: Acute Comment: Will adjust medicines to get under better control. Please note given the circumstances no DPP for drugs no GLP-1 drugs Qualifiers: Diabetes mellitus fdc insulin use: without fdc use Qualified Code: E11.65 - Type 2 diabetes mellitus with hyperglycemia, without long-term current use of insulin Subjective 24 Hr Interval Summary Constitutional: improved Respiratory: no complaints Cardiovascular: no complaints Gastrointestinal: pain (Intermittent minimal stabs of pain otherwise well) Genitourinary: no complaints Musculoskeletal: no complaints Exam/Review of Systems Vital Signs Vitals Vital Signs Date Time Temp Pulse Resp B/P Pulse Ox O2 Delivery O2 Flow Rate FiO2 09/07/16 12:03 52 09/07/16 11:33 97.9 17 147/66 98 09/07/16 04:00 Room Air 09/03/16 16:30 6.0 Intake and Output 09/06/16 09/06/16 09/07/16 15:00 23:00 07:00 Intake Total 800 ml 250 ml Balance 800 ml 250 ml Exam Constitutional: alert, oriented Respiratory: clear to auscultation, normal air movement Cardiovascular: nl pulses, regular rate and rhythm Gastrointestinal: nl liver, spleen, non-tender, soft Results Result Diagram: 09/07/16 0659 09/07/16 0659 Results 24 hrs Laboratory Tests Test 09/06/16 17:06 09/06/16 20:13 09/07/16 02:52 09/07/16 06:59 Bedside Glucose 213 262 H 190 Alanine Aminotransferase (ALT/SGPT) 48 Albumin 3.1 L Albumin/Globulin Ratio 1.00 Alkaline Phosphatase 124 H Anion Gap 17 H Aspartate Amino Transf (AST/SGOT) 58 H Basophils # 0.0 Basophils % 0.4 Blood Urea Nitrogen 5 L Calcium Level 8.5 Carbon Dioxide Level 27 Chloride Level 103 Creatinine 0.58 Direct Bilirubin 0.00 Eosinophils # 0.1 Eosinophils % 2.1 Globulin 3.10 Glucose Level 207 Hematocrit 35.7 L Hemoglobin 12.1 Indirect Bilirubin 0.3 Lipase 1257 H Lymphocytes # 1.1 Lymphocytes % 21.1 Magnesium Level 1.5 L Mean Corpuscular Hemoglobin 29.2 Mean Corpuscular Hemoglobin Concent 34.0 Mean Corpuscular Volume 86.1 Mean Platelet Volume 9.4 Monocytes # 0.8 Monocytes % 15.5 H Neutrophils # 3.3 Neutrophils % 60.9 Nucleated Red Blood Cells # 0.0 Nucleated Red Blood Cells % 0.0 Platelet Count 175 Potassium Level 3.2 L Red Blood Count 4.15 L Red Cell Distribution Width 14.1 Sodium Level 144 Total Bilirubin 0.3 Total Protein 6.2 White Blood Count 5.4 # Test 09/07/16 07:55 09/07/16 11:26 Bedside Glucose 229 H 283 H Medications Medications Current Medications Dextrose/Sodium Chloride (D5-1/2ns) 1,000 ml @ 125 mls/hr Q8H IV Last administered on 09/07/16at 05:19; Admin Dose 125 MLS/HR; Start 09/02/16 at 06: 28 Lorazepam (Ativan) 0.5 mg Q6H PRN IV ANXIETY; Start 09/02/16 at 06:30 Ondansetron HCl (Zofran Inj) 4 mg Q6H PRN IV NAUSEA AND/OR VOMITING; Start at 06:30 Metoclopramide HCl (Reglan) 10 mg Q6H PRN IV NAUSEA AND/OR VOMITING; Start at 06:30 Magnesium Hydroxide (Milk Of Mag) 30 ml DAILY PRN PO CONSTIPATION; Start 09/02 at 06:30 Morphine Sulfate (morphine) 4 mg Q4H PRN IV pain Last administered on at 03:22; Admin Dose 4 MG; Start 09/02/16 at 07:00 Famotidine (Pepcid Iv) 20 mg DAILY IV Last administered on 09/07/16at 08:57; Admin Dose 20 MG; Start 09/02/16 at 09:00 Diagnostic Test (Pha) (Accucheck) 1 ea 02 XX Last administered on 09/07/16at 02 :00; Admin Dose 1 EA; Start 09/03/16 at 02:00 Miscellaneous Information 1 ea NOTE XX ; Start 09/02/16 at 17:00 Glucose (Glutose) 15 gm Q15M PRN PO DECREASED GLUCOSE; Start 09/02/16 at 17:00 Glucose (Glutose) 22.5 gm Q15M PRN PO DECREASED GLUCOSE; Start 09/02/16 at 17: 00 Dextrose (D50w Syringe) 25 ml Q15M PRN IV DECREASED GLUCOSE; Start 09/02/16 at 17:00 Dextrose (D50w Syringe) 50 ml Q15M PRN IV DECREASED GLUCOSE; Start 09/02/16 at 17:00 Glucagon (Glucagen) 1 mg Q15M PRN IM DECREASED GLUCOSE; Start 09/02/16 at 17: 00 Glucose 15 gm 15 gm Q15M PRN BUCCAL DECREASED GLUCOSE; Start 09/02/16 at 17:00 Imipenem/ Cilastatin Sodium (Primaxin 500 Mg/ 100 ml (Pmx)) 100 ml @ 100 mls/ hr Q8 IVPB Last administered on 09/07/16at 05:19; Admin Dose 100 MLS/HR; Start 09/03/16 at 22:00 Simethicone (Mylicon) 80 mg Q8H PRN PO DISTENSION/GAS/BLOATING Last administered on 09/05/16at 06:10; Admin Dose 80 MG; Start 09/04/16 at 21:00 Guaifenesin (Robitussin Liquid Cup) 100 mg Q6H PRN PO COUGH Last administered on 09/06/16at 20:12; Admin Dose 100 MG; Start 09/06/16 at 13:00 Insulin Glargine (Lantus) 10 unit QPM SC Last administered on 09/06/16at 20:19 ; Admin Dose 10 UNIT; Start 09/06/16 at 21:00 Acetaminophen (Tylenol Tab) 500 mg Q6H PRN PO MILD PAIN AND OR ELEVATED TEMP Last administered on 09/06/16at 16:12; Admin Dose 500 MG; Start 09/06/16 at 16: 30 Acetaminophen (Tylenol Supp) 325 mg Q6H PRN MI FEVER GREATER THAN 100.6; Start 09/06/16 at 16:30 GLORIA GUTIERREZ MD Sep 07, 2016 12:52
[2016-09-07] MEDS ORDERED: metFORMIN 500 MG TAB PO SCH (18:05)
[2016-09-07] MEDS ORDERED: POTASSIUM CHLORIDE (SR) 20 MEQ TAB PO ONE (19:30)
[2016-09-07] MEDS: ACETAMINOPHEN 500 MG TAB PO PRN (20:19)
--- NOTE | 2016-09-07 20:34 | CONS ---
Date/Time of Note Date/Time of Note DATE: 09/07/16 TIME: 20:33 Assessment/Plan Assessment/Plan Chief Complaint/Hosp Course Assessment/Plan Cholecystitis with cholelithiasis and choledocholithiasis * s/p ERCP * Two stones in the common bile duct measuring 6 and 9 mm. * Post small sphincterotomy plus balloon dilatation of the ampulla to 10 mm post stone extraction. * Monitor lipase, trending downward * Advance diet as tolerated * IVF hydration w/ pain management * Outpatient cholecystectomy with Problems: Consultation Date/Type/Reason Admit Date/Time Sep 01, 2016 at 20:52 Initial Consult Date Type of Consultation: GI 24 HR Interval Summary Free Text/Dictation doing well, reduced abdominal pain, no n/v Exam/Review of Systems Vital Signs Vitals Vital Signs Date Time Temp Pulse Resp B/P Pulse Ox O2 Delivery O2 Flow Rate FiO2 09/07/16 20:05 51 09/07/16 15:45 98.9 18 157/73 99 09/07/16 04:00 Room Air 09/03/16 16:30 6.0 Intake and Output 09/06/16 09/06/16 09/07/16 15:00 23:00 07:00 Intake Total 800 ml 250 ml Balance 800 ml 250 ml Exam Constitutional: alert, oriented, well developed Psych: nl mood/affect, no complaints Head: atraumatic, normocephalic Eyes: EOMI, nl conjunctiva, nl lids, nl sclera ENMT: mucosa pink and moist, nl external ears & nose, nl lips & teeth, nl nasal mucosa & septum Neck: non-tender, supple Respiratory: clear to auscultation, normal air movement Cardiovascular: nl pulses, regular rate and rhythm Gastrointestinal: bowel sounds, non-tender, soft Results Result Diagram: 09/07/16 0659 09/07/16 0659 Results 24 hrs Laboratory Tests Test 09/07/16 02:52 09/07/16 06:59 09/07/16 07:55 09/07/16 11:26 Bedside Glucose 190 229 H 283 H Alanine Aminotransferase (ALT/SGPT) 48 Albumin 3.1 L Albumin/Globulin Ratio 1.00 Alkaline Phosphatase 124 H Anion Gap 17 H Aspartate Amino Transf (AST/SGOT) 58 H Basophils # 0.0 Basophils % 0.4 Blood Urea Nitrogen 5 L Calcium Level 8.5 Carbon Dioxide Level 27 Chloride Level 103 Creatinine 0.58 Direct Bilirubin 0.00 Eosinophils # 0.1 Eosinophils % 2.1 Globulin 3.10 Glucose Level 207 Hematocrit 35.7 L Hemoglobin 12.1 Indirect Bilirubin 0.3 Lipase 1257 H Lymphocytes # 1.1 Lymphocytes % 21.1 Magnesium Level 1.5 L Mean Corpuscular Hemoglobin 29.2 Mean Corpuscular Hemoglobin Concent 34.0 Mean Corpuscular Volume 86.1 Mean Platelet Volume 9.4 Monocytes # 0.8 Monocytes % 15.5 H Neutrophils # 3.3 Neutrophils % 60.9 Nucleated Red Blood Cells # 0.0 Nucleated Red Blood Cells % 0.0 Platelet Count 175 Potassium Level 3.2 L Red Blood Count 4.15 L Red Cell Distribution Width 14.1 Sodium Level 144 Total Bilirubin 0.3 Total Protein 6.2 White Blood Count 5.4 # Test 09/07/16 16:24 Bedside Glucose 173 Medications Medications Current Medications Dextrose/Sodium Chloride (D5-1/2ns) 1,000 ml @ 125 mls/hr Q8H IV Last administered on 09/07/16at 15:00; Admin Dose 125 MLS/HR; Start 09/02/16 at 06: 28 Lorazepam (Ativan) 0.5 mg Q6H PRN IV ANXIETY; Start 09/02/16 at 06:30 Ondansetron HCl (Zofran Inj) 4 mg Q6H PRN IV NAUSEA AND/OR VOMITING; Start at 06:30 Metoclopramide HCl (Reglan) 10 mg Q6H PRN IV NAUSEA AND/OR VOMITING; Start at 06:30 Magnesium Hydroxide (Milk Of Mag) 30 ml DAILY PRN PO CONSTIPATION; Start 09/02 at 06:30 Morphine Sulfate (morphine) 4 mg Q4H PRN IV pain Last administered on at 03:22; Admin Dose 4 MG; Start 09/02/16 at 07:00 Famotidine (Pepcid Iv) 20 mg DAILY IV Last administered on 09/07/16at 08:57; Admin Dose 20 MG; Start 09/02/16 at 09:00 Diagnostic Test (Pha) (Accucheck) 1 ea 02 XX Last administered on 09/07/16at 02 :00; Admin Dose 1 EA; Start 09/03/16 at 02:00 Miscellaneous Information 1 ea NOTE XX ; Start 09/02/16 at 17:00 Glucose (Glutose) 15 gm Q15M PRN PO DECREASED GLUCOSE; Start 09/02/16 at 17:00 Glucose (Glutose) 22.5 gm Q15M PRN PO DECREASED GLUCOSE; Start 09/02/16 at 17: 00 Dextrose (D50w Syringe) 25 ml Q15M PRN IV DECREASED GLUCOSE; Start 09/02/16 at 17:00 Dextrose (D50w Syringe) 50 ml Q15M PRN IV DECREASED GLUCOSE; Start 09/02/16 at 17:00 Glucagon (Glucagen) 1 mg Q15M PRN IM DECREASED GLUCOSE; Start 09/02/16 at 17: 00 Glucose 15 gm 15 gm Q15M PRN BUCCAL DECREASED GLUCOSE; Start 09/02/16 at 17:00 Imipenem/ Cilastatin Sodium (Primaxin 500 Mg/ 100 ml (Pmx)) 100 ml @ 100 mls/ hr Q8 IVPB Last administered on 09/07/16at 20:19; Admin Dose 100 MLS/HR; Start 09/03/16 at 22:00 Simethicone (Mylicon) 80 mg Q8H PRN PO DISTENSION/GAS/BLOATING Last administered on 09/05/16at 06:10; Admin Dose 80 MG; Start 09/04/16 at 21:00 Guaifenesin (Robitussin Liquid Cup) 100 mg Q6H PRN PO COUGH Last administered on 09/06/16at 20:12; Admin Dose 100 MG; Start 09/06/16 at 13:00 Acetaminophen (Tylenol Tab) 500 mg Q6H PRN PO MILD PAIN AND OR ELEVATED TEMP Last administered on 09/07/16at 20:19; Admin Dose 500 MG; Start 09/06/16 at 16: 30 Acetaminophen (Tylenol Supp) 325 mg Q6H PRN SC FEVER GREATER THAN 100.6; Start 09/06/16 at 16:30 Insulin Glargine (Lantus) 14 unit QPM SC ; Start 09/07/16 at 21:00 STEPHEN BERNSTEIN MD Sep 07, 2016 20:34
[2016-09-07] MEDS ORDERED: INSULIN GLARGINE [LANtus] 3 ML PEN SC SCH (21:00)
[2016-09-08] VITALS (8 sets, daily range): BP systolic 140–161; BP diastolic 65–77; PULSE 48–54; RESP 18–20
[2016-09-08] MEDS: ACCUCHECK XX SCH (02:30)
[2016-09-08] MEDS: IMIPENEM-CILAST 500MG IV (PMX) 100 ML IVPB SCH (06:01)
[2016-09-08] MEDS: DEXTROSE 5%-0.45% NACL 1,000 ML IV SCH ×2 (06:28→09:08)
[2016-09-08 07:01] LABS: BASOPHILS % 0.8 % (0.0-2.0); EOSINOPHILS # 0.1 10^3/ul (0.0-0.5); EOSINOPHILS % 2.6 % (0.0-7.0); HEMOGLOBIN 11.7 g/dl (12.0-16.0); LYMPHOCYTES # 1.5 10^3/ul (0.8-2.9); LYMPHOCYTES % 36.7 % (15.0-51.0); MEAN CORPUSCULAR HEMOGLOBIN 29.2 pg (29.0-33.0); MEAN CORPUSCULAR HGB CONC 33.5 g/dl (32.0-37.0); MEAN CORPUSCULAR VOLUME 87.2 fl (82.0-101.0); MEAN PLATELET VOLUME 9.6 fl (7.4-10.4); MONOCYTE # 0.7 10^3/ul (0.3-0.9); MONOCYTES % 17.1 % (0.0-11.0); NEUTROPHIL # 1.7 10^3/ul (1.6-7.5); NEUTROPHILS % 42.8 % (39.0-77.0); PLATELET COUNT 156 10^3/UL (140-440); RED BLOOD COUNT 4.02 10^6/ul (4.20-5.40); RED CELL DISTRIBUTION WIDTH 14.1 % (11.5-14.5)
[2016-09-08 07:12] LABS: POTASSIUM 3.7 mmol/L (3.5-5.1)
[2016-09-08 07:15] LABS: ALBUMIN/GLOBULIN RATIO 1.03; BILIRUBIN,INDIRECT 0.2 mg/dl (0-1.1); BILIRUBIN,TOTAL 0.2 mg/dl (0.2-1.3); CALCIUM 8.3 mg/dl (8.4-10.2); CREATININE 0.51 mg/dl (0.44-1.00); TOTAL PROTEIN 5.9 g/dl (6.1-8.1)
[2016-09-08 07:19] LABS: CONDITION 1; LH ANALYZER COMMENTS 1
[2016-09-08] MEDS: FAMOTIDINE 20 MG INJ IV SCH (09:09)
[2016-09-08] MEDS: INSULIN ASPART [NOVOLOG] 3 ML PEN SC SCH ×2 (09:13→12:11)
[2016-09-08] MEDS ORDERED: METF-385 PO (12:21)
[2016-09-08] MEDS ORDERED: GABA300C16 PO (12:21)
[2016-09-08] MEDS ORDERED: LEVO500T72 PO (12:21)
[2016-09-08] MEDS ORDERED: LOSA50TA6 PO (12:21)
--- NOTE | 2016-09-08 12:22 | PDOCDIS ---
Discharge Instructions DIAGNOSIS Discharge Diagnosis: Gallstone pancreatitis with acute cholecystitis; diabetes ; hypertension CONDITION Patient Condition: Fair HOME CARE INSTRUCTIONS: Diet Instructions: Low Fat /CholesterolSpecial Diet: soft diet ACTIVITY: Activity Restrictions: Slowly Increase Activity Rest between Activity FOLLOW UP/APPOINTMENTS Appointments Dr. Mendoza of surgery for outpatient surgery in the next 2 weeks GLORIA GUTIERREZ MD Sep 08, 2016 12:22
--- NOTE | 2016-09-08 12:28 | DS ---
Date/Time of Note Date/Time of Note DATE: 09/08/16 TIME: 12:22 Discharge Summary Admission/Discharge Info Admit Date/Time Sep 01, 2016 at 20:52 Discharge Date/Time 09/08/2015 Final Diagnosis Gallstone pancreatitis; choledocholithiasis; acute cholecystitis; hypertension; diabetes mellitus type 2; diabetic peripheral neuropathy Patient Condition: Fair Consults General surgery Dr. To; gastroenterologyDr. Whitley; Procedures Endoscopic retrograde cholangiopancreatography with sphincterotomy plus balloon dilatation of ampulla of Vater and stone removal. Gallbladder ultrasound; MRI scan abdomen; CT scan abdomen Hx of Present Illness The patient is a 71-year-old female with a history of pancreatitis 10 years ago , diagnosed at her home country in [facility] who presented to the emergency department with abdominal pain and vomiting. The pain is mainly localized in the right upper quadrant area and associated with nonbilious, nonbloody vomiting. When she presented to the ER, her vitals were stable. Laboratory values, however, shows a WBC of 28,000. AST 488, ALT 179, alkaline phosphatase 248, lipase 41,000, lactic acid 5.7, and glucose of 281. She had a right upper quadrant ultrasound which showed findings suspicious for acute cholecystitis as well as dilated common bile duct measuring 10.[address] abdomen and pelvis was done and then MRCP was done which showed cholelithiasis and gallbladder wall thickening as well as a dilated common bile duct measuring 11 mm and probable 6 mm stone in the distal common bile duct. Chest x-ray shows clear lungs. The patient has already been seen by Dr. To, the surgeon, with plan for laparoscopic cholecystectomy. The patient received pain medication, IV fluids, and antibody was given in the ER. Hospital Course Assessment/Plan Cholecystitis with cholelithiasis and choledocholithiasis * s/p ERCP * Two stones in the common bile duct measuring 6 and 9 mm. * Post small sphincterotomy plus balloon dilatation of the ampulla to 10 mm post stone extraction. * Monitor lipase, trending downward * Advance diet as tolerated * IVF hydration w/ pain management * Outpatient cholecystectomy with * After successful ERCP her lipase steadily declined and she symptomatically steadily improved. She is able to take p.o. now. As such we will discharge her with a plan to bring her back for outpatient laparoscopic cholecystectomy to be performed by Dr. Pittman. Home Meds Active Scripts Levofloxacin* (Levaquin*) 500 Mg Tablet, 500 MG PO DAILY for 30 Days, TAB 1 Refill Prov:GLORIA GUTIERREZ MD 09/08/16 Gabapentin* (Gabapentin*) 300 Mg Capsule, 300 MG PO BID for 30 Days, #60 CAP 1 Refill Prov:GLORIA GUTIERREZ MD 09/08/16 Losartan Potassium* (Losartan Potassium*) 50 Mg Tablet, 50 MG PO DAILY for 30 Days, TAB 1 Refill Prov:GLORIA GUTIERREZ MD 09/08/16 Metformin Hcl* (Metformin Hcl*) 850 Mg Tablet, 850 MG PO WITH BREAKFAST DINNE for 30 Days, #60 TAB 1 Refill Prov:GLORIA GUTIERREZ MD 09/08/16 Follow-up Plan Dr. To within the next 2 week Pending Labs Laboratory Tests Test 09/07/16 16:24 09/07/16 20:35 09/08/16 02:15 09/08/16 05:20 Bedside Glucose 173mg/dL (70-220) 282mg/dL (70-220) 227mg/dL (70-220) Alanine Aminotransferase (ALT/SGPT) 47IU/L (13-69) Albumin 3.0g/dl (3.3-4.9) Albumin/Globulin Ratio 1.03 Alkaline Phosphatase 106IU/L (42-121) Amylase Level 116U/L (11-123) Anion Gap 18 (8-16) Aspartate Amino Transf (AST/SGOT) 68IU/L (15-46) Basophils # 0.010^3/ul (0.0-0.1) Basophils % 0.8% (0.0-2.0) Blood Urea Nitrogen 7mg/dl (7-20) Calcium Level 8.3mg/dl (8.4-10.2) Carbon Dioxide Level 23mmol/L (21-31) Chloride Level 105mmol/L (97-110) Creatinine 0.51mg/dl (0.44-1.00) Direct Bilirubin 0.00mg/dl (0.00-0.20) Eosinophils # 0.110^3/ul (0.0-0.5) Eosinophils % 2.6% (0.0-7.0) Globulin 2.90g/dl (1.3-3.2) Glucose Level 256mg/dl (70-220) Hematocrit 35.0% (37.0-47.0) Hemoglobin 11.7g/dl (12.0-16.0) Indirect Bilirubin 0.2mg/dl (0-1.1) Lipase 1720U/L (23-300) Lymphocytes # 1.510^3/ul (0.8-2.9) Lymphocytes % 36.7% (15.0-51.0) Mean Corpuscular Hemoglobin 29.2pg (29.0-33.0) Mean Corpuscular Hemoglobin Concent 33.5g/dl (32.0-37.0) Mean Corpuscular Volume 87.2fl (82.0-101.0) Mean Platelet Volume 9.6fl (7.4-10.4) Monocytes # 0.710^3/ul (0.3-0.9) Monocytes % 17.1% (0.0-11.0) Neutrophils # 1.710^3/ul (1.6-7.5) Neutrophils % 42.8% (39.0-77.0) Nucleated Red Blood Cells # 0.010^3/ul (0.0-0.0) Nucleated Red Blood Cells % 0.0/100WBC (0.0-0.0) Platelet Count 21308^3/UL (140-440) Potassium Level 3.7mmol/L (3.5-5.1) Red Blood Count 4.0210^6/ul (4.20-5.40) Red Cell Distribution Width 14.1% (11.5-14.5) Sodium Level 142mmol/L (135-144) Total Bilirubin 0.2mg/dl (0.2-1.3) Total Protein 5.9g/dl (6.1-8.1) White Blood Count 4.010^3/ul (4.8-10.8) Test 09/08/16 07:36 09/08/16 11:30 Bedside Glucose 217mg/dL (70-220) 310mg/dL (70-220) Copies To: CC: HOWIE TO MD, JOSHUA A MD Sep 08, 2016 12:27
[2016-09-08] MEDS ORDERED: GABA100C14 PO (12:32)
--- NOTE | 2016-09-09 08:38 | CONS ---
Date/Time of Note Date/Time of Note DATE: 09/08/16 TIME: 18:37 Assessment/Plan Assessment/Plan Chief Complaint/Hosp Course Assessment/Plan Cholecystitis with cholelithiasis and choledocholithiasis * s/p ERCP * Two stones in the common bile duct measuring 6 and 9 mm. * Post small sphincterotomy plus balloon dilatation of the ampulla to 10 mm post stone extraction. * Monitor lipase, trending downward * Advance diet as tolerated * OK from GI perspective to dc to follow outpatient cholecystectomy with Problems: Consultation Date/Type/Reason Admit Date/Time Sep 01, 2016 at 20:52 Type of Consultation: GI 24 HR Interval Summary Free Text/Dictation tolerating PO without n/v Constitutional: improved Exam/Review of Systems Vital Signs Vitals Vital Signs Date Time Temp Pulse Resp B/P Pulse Ox O2 Delivery O2 Flow Rate FiO2 09/08/16 12:06 50 09/08/16 12:03 98.5 18 161/71 99 Room Air Intake and Output 09/08/16 09/08/16 09/09/16 15:00 23:00 07:00 Intake Total 1230 ml Balance 1230 ml Exam Constitutional: alert, oriented, well developed Psych: nl mood/affect, no complaints Head: atraumatic, normocephalic Eyes: EOMI, nl conjunctiva, nl lids, nl sclera ENMT: mucosa pink and moist, nl external ears & nose, nl lips & teeth, nl nasal mucosa & septum Neck: non-tender, supple Respiratory: clear to auscultation, normal air movement Cardiovascular: nl pulses, regular rate and rhythm Gastrointestinal: bowel sounds, non-tender, soft Results Result Diagram: 09/08/16 0520 09/08/16 0520 Results 24 hrs Laboratory Tests Test 09/08/16 11:30 Bedside Glucose 310 H STEPHEN BERNSTEIN MD Sep 09, 2016 08:38
== END 2016-09-08 13:35 | disposition home or self-care (01) | DRG 444 ==
LOC: E/R 15:01 → MS4 20:52
PROVIDERS: ADMIT Internal Medicine; ATTEND Internal Medicine
PROC: 0F798ZZ Dilation of Common Bile Duct, Via Natural or Artificial Opening Endoscopic (ICD-10-PCS; 2016-09-03)
PROC: 0FCC8ZZ Extirpation of Matter from Ampulla of Vater, Via Natural or Artificial Opening Endoscopic (ICD-10-PCS; 2016-09-03)
PROC: 0FC98ZZ Extirpation of Matter from Common Bile Duct, Via Natural or Artificial Opening Endoscopic (ICD-10-PCS; 2016-09-03)
PROC: 0F9C8ZZ Drainage of Ampulla of Vater, Via Natural or Artificial Opening Endoscopic (ICD-10-PCS; 2016-09-03)
PROC: 0F7C8ZZ Dilation of Ampulla of Vater, Via Natural or Artificial Opening Endoscopic (ICD-10-PCS; principal; 2016-09-03 15:30)
DX: K80.62 Calculus of gallbladder and bile duct with acute cholecystitis without obstruction (principal); K85.10 Biliary acute pancreatitis without necrosis or infection; E11.42 Type 2 diabetes mellitus with diabetic polyneuropathy; E11.65 Type 2 diabetes mellitus with hyperglycemia; I10 Essential (primary) hypertension
CPT/HCPCS: 71010; 74176; 74181; 74330; 76705; 80048; 80053; 80076; 81001; 81003; 82150; 82962; 83036; 83605; 83690; 83735; 84100; 84484; 85025; 85610; 85730; 87040; 87086; 90686; 93005; J0743; J1815; J2270; J2405; J2543; J3370; J3480; J7030; J7040; J7050; Q9967